=== PATIENT | male | born 1950 | race Caucasian/White ===

== ENCOUNTER → 2018-03-18 10:38 | Outpatient (CLI) | payer MEDICARE, OTHER, SELFPAY ==
--- NOTE | 2018-04-02 16:36 | P.HOLT.S_ITS ---
Cell Support Operator Report Referral & Results Date Patient Seen: 03/18/18 Requesting provider: Miles Alejandro Indication: Dizziness Duration of monitoring (days): 6 Diary information: 3 diary entries from the patient associated with sinus rhythm in PVCs 3 triggered events all associated with sinus rhythm Data: Minimum heart rate was 47 beats per minute at 07:20 on 03/19/2018 Maximum heart rate was 131 beats per minute at 12:49 on 03/19/2018 Less than 1% of identified beats were either PVCs or PACs. Impression: No clear etiology for patient's reports of dizziness identified with this study
== END ==
PROVIDERS: Family Provider Internal Medicine; PCP Internal Medicine; Visit Provider Internal Medicine
DX: R42 Dizziness and giddiness (principal)
CPT/HCPCS: 0296T; 0298T

== ENCOUNTER → 2018-11-05 07:05 | Outpatient (CLI) | payer MEDICARE, OTHER, SELFPAY ==
[2018-11-05 08:14] LABS: Alanine Aminotransferase 36 IU/L (21-72); Albumin 4.6 g/dL (3.5-5.0); Albumin Globulin Ratio 1.5 (1.0-2.8); Alkaline Phosphatase 68 U/L (38-126); Aspartate Aminotransferase 23 IU/L (17-59); BUN Creatinine Ratio 15.5 (6-22); Bilirubin Total 0.8 mg/dL (0.2-1.3); Blood Urea Nitrogen 17 mg/dL (9-20); Calcium 9.5 mg/dL (8.4-10.2); Carbon Dioxide 29 mmol/L (22-32); Chloride 101 mmol/L (98-107); Cholesterol 193 mg/dL (140-199); Estimated Glomerular Filt Rate > 60.0 mL/min (>60); Globulin 3.1 g/dL (1.7-4.1); Glucose 105 mg/dL (80-110); HDL Cholesterol 55 mg/dL (40-60); HEMOLYSIS < 15 (0-50); LDL Cholesterol Calculated 117 mg/dL (<100); Sodium 139 mmol/L (137-145); Total Protein 7.7 g/dL (6.3-8.2); Triglycerides 104 mg/dL (35-150)
== END ==
PROVIDERS: Family Provider Internal Medicine; PCP Internal Medicine; Visit Provider Internal Medicine
DX: E78.2 Mixed hyperlipidemia (principal); K21.9 Gastro-esophageal reflux disease without esophagitis; Z12.5 Encounter for screening for malignant neoplasm of prostate
CPT/HCPCS: 36415; 80053; 80061; G0103

== ENCOUNTER 2019-01-25 11:15 | Outpatient (RCR) | payer MEDICARE, OTHER, SELFPAY ==
--- NOTE | 2018-11-29 14:20 | PT.OIE ---
Current Diagnoses Pain in right shoulder (11/29/18) Cervicalgia (11/29/18) Abnormal posture (11/29/18) Weakness (11/29/18) Past Medical History (Last Updated 03/15/18 @ 15:27 by Miles Alejandro MD) Gastroesophageal reflux disease without esophagitis (Chronic 03/08/12) History of adenomatous polyp of colon (Chronic 03/08/12) Mixed hyperlipidemia (Chronic) Provider Visit Care Team Role Provider Type Miles Alejandro MD Attending Provider Physician Family Provider Primary Care Provider Specialty: Internal Medicine Address: [address] [place] [address], [facility] Email: [email or web address] Physical Therapy Initial Evaluation PT-OP-A Visit Information Start: 11/29/18 07:26 Freq: Status: Active Protocol: Document 11/29/18 11:16 [facility] (Rec: 11/29/18 12:15 [facility] [id number]) Out-Patient Physical Therapy Visit Information Visit Information Visit Type Initial Evaluation Visit Start Time 11:15 Visit Stop Time 12:00 Total Visit Minutes 45 Visit Number 09/09 Number of LOADER OPERATOR Visits 0 PT-OP-B Current Condition Start: 11/29/18 07:26 Freq: Status: Active Protocol: Document 11/29/18 11:16 [facility] (Rec: 11/29/18 12:15 [facility] [id number]) Current Condition History of Current Condition Onset Date just over a year Current Complaints neck pain History of Current Condition Pt went to the doctor and had an X-ray and it showed some arthritis and they did not think it what was causing the pain. Pt had a CT scan also that did not reveal anything. Reports it just feels like its hung up and sticky. Pt reports pain level has been about the same since it started. Pt reports every few weeks, he gets a bulge on L side. Reports a few years ago , he was doing some yoga and forced neck motion and that aggrevated his L neck. THat did recover. Pt reports history of mild R shoulder pain that he just woke up with. Reports it doesn't limit him much as he is left handed. Prior Treatments and Tests Xray & CT (done here at hospital) Treatment Goals Patient/Caregiver Goals Dec pain PT-OP-C Subjective Start: 11/29/18 07:26 Freq: Status: Active Protocol: Document 11/29/18 11:16 [facility] (Rec: 11/29/18 12:15 [facility] [id number]) Patient Questionnaires Neck Disability Index NDI Score 4 Neck Disability Index Impairment 1 to 19% Impaired (Score 1-9) OP-PT Pain Assessment Location neck Pain Location Details L neck>R Intensity 3 Scale Used Numeric (1 - 10) Description- Other worst 5-6/10 Frequency Daily Pain Duration only during activity Other Pain Aggravating Factors turn & tilt head especially R Pain Alleviating Factors None PT-OP-F Manual Assessment Start: 11/29/18 07:26 Freq: Status: Active Protocol: Document 11/29/18 11:16 [facility] (Rec: 11/29/18 12:15 [facility] [id number]) Manual Assessments Soft Tissue Assessment Soft Tissue Mobility Assessment tightness throughout L>R c spine paraspinals, scalenes, SCM, UT & LS, SO Joint Mobility Assessment Joint Mobility Assessment L 1st rib elevated PT-OP-J Posture/Palpation/Skin Start: 11/29/18 07:26 Freq: Status: Active Protocol: Document 11/29/18 11:16 [facility] (Rec: 11/29/18 12:15 [facility] [id number]) Posture Evaluation Jese Postural Classification System Jese Postural Classifications Vertical/Posterior Elbow Flexion Test 0 Comments Posture Comments Fwd shoulders & neck PT-OP-K Range of Motion Start: 11/29/18 07:26 Freq: Status: Active Protocol: Document 11/29/18 11:16 [facility] (Rec: 11/29/18 12:15 [facility] [id number]) Cervical Spine Range of Motion Cervical Spine Active Degrees Testing Position Sitting Flexion 64 Extension 47 Rotation Left 68 Rotation Right 60 Lateral Flexion Left 37 Lateral Flexion Right 40 PT-OP-L Special Tests Start: 11/29/18 07:26 Freq: Status: Active Protocol: Document 11/29/18 11:16 [facility] (Rec: 11/29/18 12:15 [facility] [id number]) Special Tests Cervical Spine Special Tests Vertebral Artery Test Results neg Alar Ligament Test Results neg Spurling's Test Test Results neg Neural Special Tests- Upper Body Radial Nerve Tension Test Results neg Upper Limb Tension Test Test Results 150 deg L & 90 deg R-R limited by shoulder Median Nerve Tension Test Results neg Ulnar Nerve Tension Test Results neg PT-OP-M Strength Start: 11/29/18 07:26 Freq: Status: Active Protocol: Document 11/29/18 11:16 [facility] (Rec: 11/29/18 12:15 [facility] [id number]) Shoulder Strength Shoulder Manual Muscle Testing Right Flexion 5 Normal Extension 5 Normal Abduction (C5) 5 Normal External Rotation 5 Normal Internal Rotation 5 Normal Left Flexion 5 Normal Extension 5 Normal Abduction (C5) 5 Normal External Rotation 5 Normal Internal Rotation 5 Normal PT-OP-Q Treatments Start: 11/29/18 07:26 Freq: Status: Active Protocol: Document 11/29/18 11:16 [facility] (Rec: 11/29/18 12:15 [facility] [id number]) Therapeutic Exercises Supine Exercises chin tuck Supine Exercise Name chin tuck Reps/Minutes 10 x3 sec hold Sitting Exercises stretches Sitting Exercise Name UT & LS Side bilateral Reps/Minutes 30 sec ea Standing Exercises wall roll up Standing Exercise Name w/90/90 ER Side bilateral Reps/Minutes 10 pec stretch Standing Exercise Name corner Side bilateral Reps/Minutes 30 sec Manual Therapy Treatment Soft Tissue Mobilization scalenes/scm Body Location scalenes & SCM Mobilization Type Rolling Intensity/Depth Moderate SOR Body Location SOR Mobilization Type Sustained Pressure Intensity/Depth Moderate PT-OP-T Assessment and Plan Start: 11/29/18 07:26 Freq: Status: Active Protocol: Document 11/29/18 11:16 [facility] (Rec: 11/29/18 12:15 [facility] [id number]) Physical Therapy Assessment Rehab Potential Rehabilitation Potential Excellent Evaluation Complexity Number of Personal Factors/Comorbidities 1-2 Number of Body Systems Impaired 4 or More Clinical Presentation at Evaluation Stable Impairments Impairments Activity Tolerance Functional Activities Functional Mobility Pain Posture ROM Soft Tissue Mobility Strength Goals ROM Short Term Goal (STG) Pt will be indep with HEP STG Duration 12/29/18 Prefitter Doors Goal (LTG) Pt will have full ROM for typical activities without pain LTG Duration 01/29/19 pain Short Term Goal (STG) Pt will report no greater than 3/10 pain STG Duration 12/29/18 Correction Goal (LTG) Pt will report no greater than 1/10 pain with all activities . LTG Duration 01/29/19 Assessment Summary Assessment Pt presents with neck pain and R shoulder pain with moderate postural deviations. He has overall strong BUE, but limited cervical ROM & dec stability of R shoulder. He would benefit from skilled PT to address posture, ROM, strength and pain. Physical Therapy Plan Frequency and Duration Frequency of Treatment 2x/Week Duration of Treatment 2 months Plan of Care Start Date 11/29/18 Plan of Care End Date 01/29/19 Therapeutic Interventions Therapeutic Interventions Home Exercise Program Joint Mobilizations Manual Therapy Patient/Caregiver Education Self-Care/Home Management Soft Tissue Mobilization Taping Therapeutic Activities Therapeutic Exercises Modalities Cold Pack/Ice Massage Electric Stimulation Hot Packs Infrared Therapy Iontophoresis Traction- Mechanical Ultrasound Next Visit Focus/Plan Next Note Type Treatment Note Next Visit Plan Review HEP & manual therapy, progress ROM
--- NOTE | 2018-11-29 14:20 | PT.OPPOC ---
Current Diagnoses Pain in right shoulder (11/29/18) Cervicalgia (11/29/18) Abnormal posture (11/29/18) Weakness (11/29/18) Provider Visit Care Team Role Provider Type Miles Alejandro MD Attending Provider Physician Family Provider Primary Care Provider Specialty: Internal Medicine Address: [address] [place] [address], [id number] Email: [email or web address] Plan Of Care PT-OP-T Assessment and Plan Start: 11/29/18 07:26 Freq: Status: Active Protocol: Document 11/29/18 11:16 [facility] (Rec: 11/29/18 12:15 [facility] [id number]) Physical Therapy Assessment Rehab Potential Rehabilitation Potential Excellent Evaluation Complexity Number of Personal Factors/Comorbidities 1-2 Number of Body Systems Impaired 4 or More Clinical Presentation at Evaluation Stable Impairments Impairments Activity Tolerance Functional Activities Functional Mobility Pain Posture ROM Soft Tissue Mobility Strength Goals ROM Short Term Goal (STG) Pt will be indep with HEP STG Duration 12/29/18 Snf Goal (LTG) Pt will have full ROM for typical activities without pain LTG Duration 01/29/19 pain Short Term Goal (STG) Pt will report no greater than 3/10 pain STG Duration 12/29/18 Cold Press Operator Goal (LTG) Pt will report no greater than 1/10 pain with all activities . LTG Duration 01/29/19 Assessment Summary Assessment Pt presents with neck pain and R shoulder pain with moderate postural deviations. He has overall strong BUE, but limited cervical ROM & dec stability of R shoulder. He would benefit from skilled PT to address posture, ROM, strength and pain. Physical Therapy Plan Frequency and Duration Frequency of Treatment 2x/Week Duration of Treatment 2 months Plan of Care Start Date 11/29/18 Plan of Care End Date 01/29/19 Therapeutic Interventions Therapeutic Interventions Home Exercise Program Joint Mobilizations Manual Therapy Patient/Caregiver Education Self-Care/Home Management Soft Tissue Mobilization Taping Therapeutic Activities Therapeutic Exercises Modalities Cold Pack/Ice Massage Electric Stimulation Hot Packs Infrared Therapy Iontophoresis Traction- Mechanical Ultrasound Next Visit Focus/Plan Next Note Type Treatment Note Next Visit Plan Review HEP & manual therapy, progress ROM Plan of Care Dates Plan of Care Start Date 11/29/18 Plan of Care End Date 01/29/19 Please Sign and Return: I have reviewed this Plan of Care and certify that the skilled therapy services above are required to meet the patient?s needs. Physician Signature Date Printed Name and Credentials Clinical Instructor Signature Printed Name and Credentials
--- NOTE | 2018-12-03 11:25 | PT.OTN ---
Current Diagnoses Cervicalgia (12/03/18) Physical Therapy Treatment Note PT-OP-A Visit Information Start: 11/29/18 07:26 Freq: Status: Active Protocol: Document 12/03/18 10:31 [facility] (Rec: 12/03/18 11:25 [facility] [id number]) Out-Patient Physical Therapy Visit Information Visit Information Visit Type Treatment Note Visit Start Time 10:30 Visit Stop Time 11:20 Total Visit Minutes 50 Visit Number 2/10 Number of SITE LEAD Visits 0 PT-OP-B Current Condition Start: 11/29/18 07:26 Freq: Status: Active Protocol: Document 11/29/18 11:16 [facility] (Rec: 11/29/18 12:15 [facility] [id number]) Current Condition History of Current Condition Onset Date just over a year Current Complaints neck pain History of Current Condition Pt went to the doctor and had an X-ray and it showed some arthritis and they did not think it what was causing the pain. Pt had a CT scan also that did not reveal anything. Reports it just feels like its hung up and sticky. Pt reports pain level has been about the same since it started. Pt reports every few weeks, he gets a bulge on L side. Reports a few years ago , he was doing some yoga and forced neck motion and that aggrevated his L neck. THat did recover. Pt reports history of mild R shoulder pain that he just woke up with. Reports it doesn't limit him much as he is left handed. Prior Treatments and Tests Xray & CT (done here at hospital) Treatment Goals Patient/Caregiver Goals Dec pain PT-OP-C Subjective Start: 11/29/18 07:26 Freq: Status: Active Protocol: Document 12/03/18 10:31 [facility] (Rec: 12/03/18 11:25 [facility] [id number]) OP-PT Subjective Patient Comments Patient Comments Compliant w/HEP PT-OP-F Manual Assessment Start: 11/29/18 07:26 Freq: Status: Active Protocol: Document 11/29/18 11:16 [facility] (Rec: 11/29/18 12:15 [facility] [id number]) Manual Assessments Soft Tissue Assessment Soft Tissue Mobility Assessment tightness throughout L>R c spine paraspinals, scalenes, SCM, UT & LS, SO Joint Mobility Assessment Joint Mobility Assessment L 1st rib elevated PT-OP-J Posture/Palpation/Skin Start: 11/29/18 07:26 Freq: Status: Active Protocol: Document 11/29/18 11:16 [facility] (Rec: 11/29/18 12:15 [facility] [id number]) Posture Evaluation [facility] Postural Classification System [facility] Postural Classifications Vertical/Posterior Elbow Flexion Test 0 Comments Posture Comments Fwd shoulders & neck PT-OP-K Range of Motion Start: 11/29/18 07:26 Freq: Status: Active Protocol: Document 11/29/18 11:16 [facility] (Rec: 11/29/18 12:15 [facility] [id number]) Cervical Spine Range of Motion Cervical Spine Active Degrees Testing Position Sitting Flexion 64 Extension 47 Rotation Left 68 Rotation Right 60 Lateral Flexion Left 37 Lateral Flexion Right 40 PT-OP-L Special Tests Start: 11/29/18 07:26 Freq: Status: Active Protocol: Document 11/29/18 11:16 [facility] (Rec: 11/29/18 12:15 [facility] [id number]) Special Tests Cervical Spine Special Tests Vertebral Artery Test Results neg Alar Ligament Test Results neg Spurling's Test Test Results neg Neural Special Tests- Upper Body Radial Nerve Tension Test Results neg Upper Limb Tension Test Test Results 150 deg L & 90 deg R-R limited by shoulder Median Nerve Tension Test Results neg Ulnar Nerve Tension Test Results neg PT-OP-M Strength Start: 11/29/18 07:26 Freq: Status: Active Protocol: Document 11/29/18 11:16 [facility] (Rec: 11/29/18 12:15 [facility] [id number]) Shoulder Strength Shoulder Manual Muscle Testing Right Flexion 5 Normal Extension 5 Normal Abduction (C5) 5 Normal External Rotation 5 Normal Internal Rotation 5 Normal Left Flexion 5 Normal Extension 5 Normal Abduction (C5) 5 Normal External Rotation 5 Normal Internal Rotation 5 Normal PT-OP-Q Treatments Start: 11/29/18 07:26 Freq: Status: Active Protocol: Document 12/03/18 10:31 [facility] (Rec: 12/03/18 11:25 [facility] [id number]) Therapeutic Exercises Supine Exercises chin tuck Supine Exercise Name chin tuck Reps/Minutes 10 x3 sec hold Sidelying Exercises roll & reach Sidelying Exercise Name rot Side bilateral Reps/Minutes 10 Sitting Exercises stretches Sitting Exercise Name UT & LS & scalene Side bilateral Reps/Minutes 30 sec ea Comments scalene stopped d/t pain Standing Exercises wall roll up Standing Exercise Name w/90/90 ER Side bilateral Reps/Minutes 10 pec stretch Standing Exercise Name corner Side bilateral Reps/Minutes 30 sec Manual Therapy Treatment Soft Tissue Mobilization UT/LS Body Location UT/LS Mobilization Type Rolling Intensity/Depth Moderate scalenes/scm Body Location scalenes & SCM Mobilization Type Rolling Intensity/Depth Moderate SOR Body Location SOR Mobilization Type Sustained Pressure Intensity/Depth Moderate PT-OP-R Modalities Start: 11/29/18 07:26 Freq: Status: Active Protocol: Document 12/03/18 10:31 [facility] (Rec: 12/03/18 11:25 [facility] [id number]) Hot Pack/Cold Pack Treatment Cold Pack Location cervical Patient Position Supine Treatment Duration (minutes) 10 PT-OP-T Assessment and Plan Start: 11/29/18 07:26 Freq: Status: Active Protocol: Document 12/03/18 10:31 [facility] (Rec: 12/03/18 11:25 [facility] [id number]) Physical Therapy Assessment Goals ROM Short Term Goal (STG) Pt will be indep with HEP STG Duration 12/29/18 Skilled Nursing Goal (LTG) Pt will have full ROM for typical activities without pain LTG Duration 01/29/19 pain Short Term Goal (STG) Pt will report no greater than 3/10 pain STG Duration 12/29/18 Abattoir Supervisor Goal (LTG) Pt will report no greater than 1/10 pain with all activities . LTG Duration 01/29/19 Assessment Summary Assessment Pt had improved rotation w/ manual soft tissue massage. He was able to do exercises with min cueing. Most step up assistance required was for wall posture exercise. Physical Therapy Plan Frequency and Duration Frequency of Treatment 2x/Week Duration of Treatment 2 months Plan of Care Start Date 11/29/18 Plan of Care End Date 01/29/19 Next Visit Focus/Plan Next Note Type Treatment Note Next Visit Plan progress ROM & cervical stability
--- NOTE | 2018-12-10 11:31 | PT.OTN ---
Current Diagnoses Cervicalgia (12/10/18) Physical Therapy Treatment Note PT-OP-A Visit Information Start: 11/29/18 07:26 Freq: Status: Active Protocol: Document 12/10/18 10:41 [facility] (Rec: 12/10/18 11:31 [facility] [id number]) Out-Patient Physical Therapy Visit Information Visit Information Visit Type Treatment Note Visit Start Time 10:35 Visit Stop Time 11:25 Total Visit Minutes 50 Visit Number 3/10 Number of CUSTOMER SERVICE SECURITY OFFICER Visits 0 PT-OP-B Current Condition Start: 11/29/18 07:26 Freq: Status: Active Protocol: Document 11/29/18 11:16 [facility] (Rec: 11/29/18 12:15 [facility] [id number]) Current Condition History of Current Condition Onset Date just over a year Current Complaints neck pain History of Current Condition Pt went to the doctor and had an X-ray and it showed some arthritis and they did not think it what was causing the pain. Pt had a CT scan also that did not reveal anything. Reports it just feels like its hung up and sticky. Pt reports pain level has been about the same since it started. Pt reports every few weeks, he gets a bulge on L side. Reports a few years ago , he was doing some yoga and forced neck motion and that aggrevated his L neck. THat did recover. Pt reports history of mild R shoulder pain that he just woke up with. Reports it doesn't limit him much as he is left handed. Prior Treatments and Tests Xray & CT (done here at hospital) Treatment Goals Patient/Caregiver Goals Dec pain PT-OP-C Subjective Start: 11/29/18 07:26 Freq: Status: Active Protocol: Document 12/10/18 10:41 [facility] (Rec: 12/10/18 11:31 [facility] [id number]) OP-PT Subjective Patient Comments Patient Comments Pt reports doing most exercises. Todd pretty good for 3 days after last session. PT-OP-F Manual Assessment Start: 11/29/18 07:26 Freq: Status: Active Protocol: Document 11/29/18 11:16 [facility] (Rec: 11/29/18 12:15 [facility] [id number]) Manual Assessments Soft Tissue Assessment Soft Tissue Mobility Assessment tightness throughout L>R c spine paraspinals, scalenes, SCM, UT & LS, SO Joint Mobility Assessment Joint Mobility Assessment L 1st rib elevated PT-OP-J Posture/Palpation/Skin Start: 11/29/18 07:26 Freq: Status: Active Protocol: Document 11/29/18 11:16 [facility] (Rec: 11/29/18 12:15 [facility] [id number]) Posture Evaluation [facility] Postural Classification System Jese Postural Classifications Vertical/Posterior Elbow Flexion Test 0 Comments Posture Comments Fwd shoulders & neck PT-OP-K Range of Motion Start: 11/29/18 07:26 Freq: Status: Active Protocol: Document 11/29/18 11:16 [facility] (Rec: 11/29/18 12:15 [facility] [id number]) Cervical Spine Range of Motion Cervical Spine Active Degrees Testing Position Sitting Flexion 64 Extension 47 Rotation Left 68 Rotation Right 60 Lateral Flexion Left 37 Lateral Flexion Right 40 PT-OP-L Special Tests Start: 11/29/18 07:26 Freq: Status: Active Protocol: Document 11/29/18 11:16 [facility] (Rec: 11/29/18 12:15 [facility] [id number]) Special Tests Cervical Spine Special Tests Vertebral Artery Test Results neg Alar Ligament Test Results neg Spurling's Test Test Results neg Neural Special Tests- Upper Body Radial Nerve Tension Test Results neg Upper Limb Tension Test Test Results 150 deg L & 90 deg R-R limited by shoulder Median Nerve Tension Test Results neg Ulnar Nerve Tension Test Results neg PT-OP-M Strength Start: 11/29/18 07:26 Freq: Status: Active Protocol: Document 11/29/18 11:16 [facility] (Rec: 11/29/18 12:15 [facility] [id number]) Shoulder Strength Shoulder Manual Muscle Testing Right Flexion 5 Normal Extension 5 Normal Abduction (C5) 5 Normal External Rotation 5 Normal Internal Rotation 5 Normal Left Flexion 5 Normal Extension 5 Normal Abduction (C5) 5 Normal External Rotation 5 Normal Internal Rotation 5 Normal PT-OP-Q Treatments Start: 11/29/18 07:26 Freq: Status: Active Protocol: Document 12/10/18 10:41 [facility] (Rec: 12/10/18 11:31 [facility] [id number]) Therapeutic Exercises Supine Exercises chin tuck Supine Exercise Name chin tuck Reps/Minutes 10 x3 sec hold Sidelying Exercises roll & reach Sidelying Exercise Name rot Side bilateral Reps/Minutes 10 Sitting Exercises stretches Sitting Exercise Name UT & LS Side bilateral Reps/Minutes 30 sec ea Standing Exercises wall roll up Standing Exercise Name w/90/90 ER Side bilateral Reps/Minutes 10 Manual Therapy Treatment Soft Tissue Mobilization paraspinals Body Location C spine Mobilization Type Rolling Intensity/Depth Moderate Body Position Supine UT/LS Body Location UT/LS Mobilization Type Rolling Intensity/Depth Moderate scalenes/scm Body Location scalenes & SCM Mobilization Type Rolling Intensity/Depth Moderate SOR Body Location SOR Mobilization Type Sustained Pressure Intensity/Depth Moderate Joint Mobilizations SC Joint SC L Direction caudal FM AC Joint AC L Direction acromian FM PT-OP-R Modalities Start: 11/29/18 07:26 Freq: Status: Active Protocol: Document 12/10/18 10:41 [facility] (Rec: 12/10/18 11:31 [facility] [id number]) Hot Pack/Cold Pack Treatment Cold Pack Location cervical Patient Position Supine Treatment Duration (minutes) 10 PT-OP-T Assessment and Plan Start: 11/29/18 07:26 Freq: Status: Active Protocol: Document 12/10/18 10:41 [facility] (Rec: 12/10/18 11:31 [facility] [id number]) Physical Therapy Assessment Goals ROM Short Term Goal (STG) Pt will be indep with HEP STG Duration 12/29/18 Range Conservationist Goal (LTG) Pt will have full ROM for typical activities without pain LTG Duration 01/29/19 pain Short Term Goal (STG) Pt will report no greater than 3/10 pain STG Duration 12/29/18 Range Conservationist Goal (LTG) Pt will report no greater than 1/10 pain with all activities . LTG Duration 01/29/19 Assessment Summary Assessment Min cuieng for exercises and required review for roll & reach. He had improved soft tissue mobilization after STM and joint mobs. Physical Therapy Plan Frequency and Duration Frequency of Treatment 2x/Week Duration of Treatment 2 months Plan of Care Start Date 11/29/18 Plan of Care End Date 01/29/19 Next Visit Focus/Plan Next Note Type Treatment Note Next Visit Plan cervical stability & thoracic PA
--- NOTE | 2018-12-13 14:34 | PT.OTN ---
Current Diagnoses Cervicalgia (12/13/18) Physical Therapy Treatment Note PT-OP-A Visit Information Start: 11/29/18 07:26 Freq: Status: Active Protocol: Document 12/13/18 13:47 [facility] (Rec: 12/13/18 14:34 [facility] [id number]) Out-Patient Physical Therapy Visit Information Visit Information Visit Type Treatment Note Visit Start Time 13:45 Visit Stop Time 14:25 Total Visit Minutes 40 Visit Number 4/10 Number of TECHNICAL ADVISOR Visits 0 PT-OP-B Current Condition Start: 11/29/18 07:26 Freq: Status: Active Protocol: Document 11/29/18 11:16 [facility] (Rec: 11/29/18 12:15 [facility] [id number]) Current Condition History of Current Condition Onset Date just over a year Current Complaints neck pain History of Current Condition Pt went to the doctor and had an X-ray and it showed some arthritis and they did not think it what was causing the pain. Pt had a CT scan also that did not reveal anything. Reports it just feels like its hung up and sticky. Pt reports pain level has been about the same since it started. Pt reports every few weeks, he gets a bulge on L side. Reports a few years ago , he was doing some yoga and forced neck motion and that aggrevated his L neck. THat did recover. Pt reports history of mild R shoulder pain that he just woke up with. Reports it doesn't limit him much as he is left handed. Prior Treatments and Tests Xray & CT (done here at hospital) Treatment Goals Patient/Caregiver Goals Dec pain PT-OP-C Subjective Start: 11/29/18 07:26 Freq: Status: Active Protocol: Document 12/13/18 13:47 [facility] (Rec: 12/13/18 14:34 [facility] [id number]) OP-PT Subjective Patient Comments Patient Comments Pt reports neck cont to be stiff but he doesn't feel the lump feeling. Patient Reported Progress Improving PT-OP-F Manual Assessment Start: 11/29/18 07:26 Freq: Status: Active Protocol: Document 11/29/18 11:16 [facility] (Rec: 11/29/18 12:15 [facility] [id number]) Manual Assessments Soft Tissue Assessment Soft Tissue Mobility Assessment tightness throughout L>R c spine paraspinals, scalenes, SCM, UT & LS, SO Joint Mobility Assessment Joint Mobility Assessment L 1st rib elevated PT-OP-J Posture/Palpation/Skin Start: 11/29/18 07:26 Freq: Status: Active Protocol: Document 11/29/18 11:16 [facility] (Rec: 11/29/18 12:15 [facility] [id number]) Posture Evaluation [facility] Postural Classification System Jese Postural Classifications Vertical/Posterior Elbow Flexion Test 0 Comments Posture Comments Fwd shoulders & neck PT-OP-K Range of Motion Start: 11/29/18 07:26 Freq: Status: Active Protocol: Document 11/29/18 11:16 [facility] (Rec: 11/29/18 12:15 [facility] [id number]) Cervical Spine Range of Motion Cervical Spine Active Degrees Testing Position Sitting Flexion 64 Extension 47 Rotation Left 68 Rotation Right 60 Lateral Flexion Left 37 Lateral Flexion Right 40 PT-OP-L Special Tests Start: 11/29/18 07:26 Freq: Status: Active Protocol: Document 11/29/18 11:16 [facility] (Rec: 11/29/18 12:15 [facility] [id number]) Special Tests Cervical Spine Special Tests Vertebral Artery Test Results neg Alar Ligament Test Results neg Spurling's Test Test Results neg Neural Special Tests- Upper Body Radial Nerve Tension Test Results neg Upper Limb Tension Test Test Results 150 deg L & 90 deg R-R limited by shoulder Median Nerve Tension Test Results neg Ulnar Nerve Tension Test Results neg PT-OP-M Strength Start: 11/29/18 07:26 Freq: Status: Active Protocol: Document 11/29/18 11:16 [facility] (Rec: 11/29/18 12:15 [facility] [id number]) Shoulder Strength Shoulder Manual Muscle Testing Right Flexion 5 Normal Extension 5 Normal Abduction (C5) 5 Normal External Rotation 5 Normal Internal Rotation 5 Normal Left Flexion 5 Normal Extension 5 Normal Abduction (C5) 5 Normal External Rotation 5 Normal Internal Rotation 5 Normal PT-OP-Q Treatments Start: 11/29/18 07:26 Freq: Status: Active Protocol: Document 12/13/18 13:47 [facility] (Rec: 12/13/18 14:34 [facility] [id number]) Therapeutic Exercises Supine Exercises foam roll Supine Exercise Name foam roll: flex, Habd, abd, 90 /90 ER Side bilateral Reps/Minutes 10 ea Prone Exercises prone Y Prone Exercise Name scaption Side bilateral Equipment Used 1# Reps/Minutes 2x10 over tball Prone Exercise Name Habd Side bilateral Reps/Minutes 1x10 0#; 2x10 2# Therapeutic Activity Therapeutic Activity sleep Name sleeping position-partial prone Manual Therapy Treatment Soft Tissue Mobilization paraspinals Body Location C spine Mobilization Type Rolling Intensity/Depth Moderate Body Position Supine UT/LS Body Location UT/LS Mobilization Type Rolling Intensity/Depth Moderate scalenes/scm Body Location scalenes & SCM Mobilization Type Rolling Intensity/Depth Moderate SOR Body Location SOR Mobilization Type Sustained Pressure Intensity/Depth Moderate Joint Mobilizations C3 Joint c3 Direction transverse glide R Grade II PT-OP-R Modalities Start: 11/29/18 07:26 Freq: Status: Active Protocol: Document 12/10/18 10:41 [facility] (Rec: 12/10/18 11:31 [facility] [id number]) Hot Pack/Cold Pack Treatment Cold Pack Location cervical Patient Position Supine Treatment Duration (minutes) 10 PT-OP-T Assessment and Plan Start: 11/29/18 07:26 Freq: Status: Active Protocol: Document 12/13/18 13:47 [facility] (Rec: 12/13/18 14:34 [facility] [id number]) Physical Therapy Assessment Goals ROM Short Term Goal (STG) Pt will be indep with HEP STG Duration 12/29/18 Snf Goal (LTG) Pt will have full ROM for typical activities without pain LTG Duration 01/29/19 pain Short Term Goal (STG) Pt will report no greater than 3/10 pain STG Duration 12/29/18 Snf Goal (LTG) Pt will report no greater than 1/10 pain with all activities . LTG Duration 01/29/19 Assessment Summary Assessment Pt required ceuing for neutral back and neck with foam roll and tball exercises today. Improving soft tissue mobility but cont to be restricted Physical Therapy Plan Frequency and Duration Frequency of Treatment 2x/Week Duration of Treatment 2 months Plan of Care Start Date 11/29/18 Plan of Care End Date 01/29/19 Next Visit Focus/Plan Next Note Type Treatment Note Next Visit Plan cont to work on cervical and thoracic stability.
--- NOTE | 2018-12-17 11:14 | PT.OTN ---
Current Diagnoses Cervicalgia (12/17/18) Physical Therapy Treatment Note PT-OP-A Visit Information Start: 11/29/18 07:26 Freq: Status: Active Protocol: Document 12/17/18 10:20 [facility] (Rec: 12/17/18 11:13 [facility] [id number]) Out-Patient Physical Therapy Visit Information Visit Information Visit Type Treatment Note Visit Start Time 10:25 Visit Stop Time 11:15 Total Visit Minutes 50 Visit Number 5/10 Number of PUBLIC SERVICE ADMINISTRATOR Visits 0 PT-OP-B Current Condition Start: 11/29/18 07:26 Freq: Status: Active Protocol: Document 11/29/18 11:16 [facility] (Rec: 11/29/18 12:15 [facility] [id number]) Current Condition History of Current Condition Onset Date just over a year Current Complaints neck pain History of Current Condition Pt went to the doctor and had an X-ray and it showed some arthritis and they did not think it what was causing the pain. Pt had a CT scan also that did not reveal anything. Reports it just feels like its hung up and sticky. Pt reports pain level has been about the same since it started. Pt reports every few weeks, he gets a bulge on L side. Reports a few years ago , he was doing some yoga and forced neck motion and that aggrevated his L neck. THat did recover. Pt reports history of mild R shoulder pain that he just woke up with. Reports it doesn't limit him much as he is left handed. Prior Treatments and Tests Xray & CT (done here at hospital) Treatment Goals Patient/Caregiver Goals Dec pain PT-OP-C Subjective Start: 11/29/18 07:26 Freq: Status: Active Protocol: Document 12/17/18 10:20 [facility] (Rec: 12/17/18 11:13 [facility] [id number]) OP-PT Subjective Patient Comments Patient Comments Pt reports neck pain cont to be getting better. Patient Reported Progress Improving PT-OP-F Manual Assessment Start: 11/29/18 07:26 Freq: Status: Active Protocol: Document 11/29/18 11:16 [facility] (Rec: 11/29/18 12:15 [facility] [id number]) Manual Assessments Soft Tissue Assessment Soft Tissue Mobility Assessment tightness throughout L>R c spine paraspinals, scalenes, SCM, UT & LS, SO Joint Mobility Assessment Joint Mobility Assessment L 1st rib elevated PT-OP-J Posture/Palpation/Skin Start: 11/29/18 07:26 Freq: Status: Active Protocol: Document 11/29/18 11:16 [facility] (Rec: 11/29/18 12:15 [facility] [id number]) Posture Evaluation [facility] Postural Classification System Jese Postural Classifications Vertical/Posterior Elbow Flexion Test 0 Comments Posture Comments Fwd shoulders & neck PT-OP-K Range of Motion Start: 11/29/18 07:26 Freq: Status: Active Protocol: Document 11/29/18 11:16 [facility] (Rec: 11/29/18 12:15 [facility] [id number]) Cervical Spine Range of Motion Cervical Spine Active Degrees Testing Position Sitting Flexion 64 Extension 47 Rotation Left 68 Rotation Right 60 Lateral Flexion Left 37 Lateral Flexion Right 40 PT-OP-L Special Tests Start: 11/29/18 07:26 Freq: Status: Active Protocol: Document 11/29/18 11:16 [facility] (Rec: 11/29/18 12:15 [facility] [id number]) Special Tests Cervical Spine Special Tests Vertebral Artery Test Results neg Alar Ligament Test Results neg Spurling's Test Test Results neg Neural Special Tests- Upper Body Radial Nerve Tension Test Results neg Upper Limb Tension Test Test Results 150 deg L & 90 deg R-R limited by shoulder Median Nerve Tension Test Results neg Ulnar Nerve Tension Test Results neg PT-OP-M Strength Start: 11/29/18 07:26 Freq: Status: Active Protocol: Document 11/29/18 11:16 [facility] (Rec: 11/29/18 12:15 [facility] [id number]) Shoulder Strength Shoulder Manual Muscle Testing Right Flexion 5 Normal Extension 5 Normal Abduction (C5) 5 Normal External Rotation 5 Normal Internal Rotation 5 Normal Left Flexion 5 Normal Extension 5 Normal Abduction (C5) 5 Normal External Rotation 5 Normal Internal Rotation 5 Normal PT-OP-Q Treatments Start: 11/29/18 07:26 Freq: Status: Active Protocol: Document 12/17/18 10:20 [facility] (Rec: 12/17/18 11:13 [facility] [id number]) Therapeutic Exercises Supine Exercises foam roll Supine Exercise Name foam roll: flex, Habd, abd, 90 /90 ER Side bilateral Reps/Minutes 10 ea chin tuck Supine Exercise Name axial elongation w/ hand support taken away Reps/Minutes 5 sec hold x8 Prone Exercises prone Y Prone Exercise Name scaption Side bilateral Equipment Used 1# Reps/Minutes 2x10 over tball Prone Exercise Name Habd Side bilateral Equipment Used 2# Reps/Minutes 2x10 Manual Therapy Treatment Soft Tissue Mobilization paraspinals Body Location C spine Mobilization Type Rolling Intensity/Depth Moderate Body Position Supine UT/LS Body Location UT/LS Mobilization Type Rolling Intensity/Depth Moderate scalenes/scm Body Location scalenes & SCM Mobilization Type Rolling Intensity/Depth Moderate SOR Body Location SOR Mobilization Type Sustained Pressure Intensity/Depth Moderate PT-OP-R Modalities Start: 11/29/18 07:26 Freq: Status: Active Protocol: Document 12/17/18 10:20 [facility] (Rec: 12/17/18 11:13 [facility] [id number]) Hot Pack/Cold Pack Treatment Cold Pack Location cervical Patient Position Supine Treatment Duration (minutes) 10 PT-OP-T Assessment and Plan Start: 11/29/18 07:26 Freq: Status: Active Protocol: Document 12/17/18 10:20 [facility] (Rec: 12/17/18 11:13 [facility] [id number]) Physical Therapy Assessment Goals ROM Short Term Goal (STG) Pt will be indep with HEP STG Duration 12/29/18 Half-Way Goal (LTG) Pt will have full ROM for typical activities without pain LTG Duration 01/29/19 pain Short Term Goal (STG) Pt will report no greater than 3/10 pain STG Duration 12/29/18 Half-Way Goal (LTG) Pt will report no greater than 1/10 pain with all activities . LTG Duration 01/29/19 Assessment Summary Assessment Pt is imprvoing with cervical mobility. Has good PROM in supine and was able to stretch R UT in supine but is painful in standing so encouraged to do supine. Good form with tball exercises with min cuieng. Physical Therapy Plan Frequency and Duration Frequency of Treatment 2x/Week Duration of Treatment 2 months Plan of Care Start Date 11/29/18 Plan of Care End Date 01/29/19 Next Visit Focus/Plan Next Note Type Treatment Note Next Visit Plan cont to work on cervical and thoracic stability.
--- NOTE | 2018-12-20 12:04 | PT.OTN ---
Current Diagnoses Cervicalgia (12/20/18) Physical Therapy Treatment Note PT-OP-A Visit Information Start: 11/29/18 07:26 Freq: Status: Active Protocol: Document 12/20/18 11:22 [facility] (Rec: 12/20/18 12:04 [facility] [id number]) Out-Patient Physical Therapy Visit Information Visit Information Visit Type Treatment Note Visit Start Time 11:20 Visit Stop Time 12:00 Total Visit Minutes 40 Visit Number 6/10 Number of FLAT LOCKER Visits 0 PT-OP-B Current Condition Start: 11/29/18 07:26 Freq: Status: Active Protocol: Document 11/29/18 11:16 [facility] (Rec: 11/29/18 12:15 [facility] [id number]) Current Condition History of Current Condition Onset Date just over a year Current Complaints neck pain History of Current Condition Pt went to the doctor and had an X-ray and it showed some arthritis and they did not think it what was causing the pain. Pt had a CT scan also that did not reveal anything. Reports it just feels like its hung up and sticky. Pt reports pain level has been about the same since it started. Pt reports every few weeks, he gets a bulge on L side. Reports a few years ago , he was doing some yoga and forced neck motion and that aggrevated his L neck. THat did recover. Pt reports history of mild R shoulder pain that he just woke up with. Reports it doesn't limit him much as he is left handed. Prior Treatments and Tests Xray & CT (done here at hospital) Treatment Goals Patient/Caregiver Goals Dec pain PT-OP-C Subjective Start: 11/29/18 07:26 Freq: Status: Active Protocol: Document 12/17/18 10:20 [facility] (Rec: 12/17/18 11:13 [facility] [id number]) OP-PT Subjective Patient Comments Patient Comments Pt reports neck pain cont to be getting better. Patient Reported Progress Improving PT-OP-F Manual Assessment Start: 11/29/18 07:26 Freq: Status: Active Protocol: Document 11/29/18 11:16 [facility] (Rec: 11/29/18 12:15 [facility] [id number]) Manual Assessments Soft Tissue Assessment Soft Tissue Mobility Assessment tightness throughout L>R c spine paraspinals, scalenes, SCM, UT & LS, SO Joint Mobility Assessment Joint Mobility Assessment L 1st rib elevated PT-OP-J Posture/Palpation/Skin Start: 11/29/18 07:26 Freq: Status: Active Protocol: Document 11/29/18 11:16 [facility] (Rec: 11/29/18 12:15 [facility] [id number]) Posture Evaluation [facility] Postural Classification System Jese Postural Classifications Vertical/Posterior Elbow Flexion Test 0 Comments Posture Comments Fwd shoulders & neck PT-OP-K Range of Motion Start: 11/29/18 07:26 Freq: Status: Active Protocol: Document 11/29/18 11:16 [facility] (Rec: 11/29/18 12:15 [facility] [id number]) Cervical Spine Range of Motion Cervical Spine Active Degrees Testing Position Sitting Flexion 64 Extension 47 Rotation Left 68 Rotation Right 60 Lateral Flexion Left 37 Lateral Flexion Right 40 PT-OP-L Special Tests Start: 11/29/18 07:26 Freq: Status: Active Protocol: Document 11/29/18 11:16 [facility] (Rec: 11/29/18 12:15 [facility] [id number]) Special Tests Cervical Spine Special Tests Vertebral Artery Test Results neg Alar Ligament Test Results neg Spurling's Test Test Results neg Neural Special Tests- Upper Body Radial Nerve Tension Test Results neg Upper Limb Tension Test Test Results 150 deg L & 90 deg R-R limited by shoulder Median Nerve Tension Test Results neg Ulnar Nerve Tension Test Results neg PT-OP-M Strength Start: 11/29/18 07:26 Freq: Status: Active Protocol: Document 11/29/18 11:16 [facility] (Rec: 11/29/18 12:15 [facility] [id number]) Shoulder Strength Shoulder Manual Muscle Testing Right Flexion 5 Normal Extension 5 Normal Abduction (C5) 5 Normal External Rotation 5 Normal Internal Rotation 5 Normal Left Flexion 5 Normal Extension 5 Normal Abduction (C5) 5 Normal External Rotation 5 Normal Internal Rotation 5 Normal PT-OP-Q Treatments Start: 11/29/18 07:26 Freq: Status: Active Protocol: Document 12/20/18 11:22 [facility] (Rec: 12/20/18 12:04 [facility] [id number]) Therapeutic Exercises Supine Exercises chin tuck Supine Exercise Name axial elongation w/ hand support taken away Reps/Minutes 5 sec hold x8 Standing Exercises Habd Standing Exercise Name Habd Side bilateral Equipment Used L2 Reps/Minutes 20 ER Standing Exercise Name B Side bilateral Reps/Minutes 20 ext Standing Exercise Name shoulder Side bilateral Equipment Used L3 Reps/Minutes 20 Manual Therapy Treatment Soft Tissue Mobilization paraspinals Body Location C spine Mobilization Type Rolling Intensity/Depth Moderate Body Position Supine UT/LS Body Location UT/LS Mobilization Type Rolling Intensity/Depth Moderate scalenes/scm Body Location scalenes & SCM Mobilization Type Rolling Intensity/Depth Moderate SOR Body Location SOR Mobilization Type Sustained Pressure Intensity/Depth Moderate Joint Mobilizations cervical Joint C4 & 5 Direction PA FM L PT-OP-R Modalities Start: 11/29/18 07:26 Freq: Status: Active Protocol: Document 12/17/18 10:20 [facility] (Rec: 12/17/18 11:13 [facility] [id number]) Hot Pack/Cold Pack Treatment Cold Pack Location cervical Patient Position Supine Treatment Duration (minutes) 10 PT-OP-T Assessment and Plan Start: 11/29/18 07:26 Freq: Status: Active Protocol: Document 12/20/18 11:22 [facility] (Rec: 12/20/18 12:04 [facility] [id number]) Physical Therapy Assessment Goals ROM Short Term Goal (STG) Pt will be indep with HEP STG Duration 12/29/18 Penitentiary Goal (LTG) Pt will have full ROM for typical activities without pain LTG Duration 01/29/19 pain Short Term Goal (STG) Pt will report no greater than 3/10 pain STG Duration 12/29/18 Hand Cutter Apprentice Goal (LTG) Pt will report no greater than 1/10 pain with all activities . LTG Duration 01/29/19 Assessment Summary Assessment Pt had no pain with close to full ROM in seated AROM and supine PROM today after manual treatement. He cotnt ot improve with scapular stability Physical Therapy Plan Frequency and Duration Frequency of Treatment 2x/Week Duration of Treatment 2 months Plan of Care Start Date 11/29/18 Plan of Care End Date 01/29/19 Next Visit Focus/Plan Next Note Type Treatment Note Next Visit Plan cont to work on cervical and thoracic stability & mobility.
--- NOTE | 2018-12-27 13:00 | PT.OTN ---
Current Diagnoses Cervicalgia (12/27/18) Physical Therapy Treatment Note PT-OP-A Visit Information Start: 11/29/18 07:26 Freq: Status: Active Protocol: Document 12/27/18 11:20 [facility] (Rec: 12/27/18 13:00 [facility] [id number]) Out-Patient Physical Therapy Visit Information Visit Information Visit Type Treatment Note Visit Start Time 11:20 Visit Stop Time 12:10 Total Visit Minutes 50 Visit Number 7/10 Number of UTILITY MECHANIC SUPERVISOR Visits 0 PT-OP-B Current Condition Start: 11/29/18 07:26 Freq: Status: Active Protocol: Document 11/29/18 11:16 [facility] (Rec: 11/29/18 12:15 [facility] [id number]) Current Condition History of Current Condition Onset Date just over a year Current Complaints neck pain History of Current Condition Pt went to the doctor and had an X-ray and it showed some arthritis and they did not think it what was causing the pain. Pt had a CT scan also that did not reveal anything. Reports it just feels like its hung up and sticky. Pt reports pain level has been about the same since it started. Pt reports every few weeks, he gets a bulge on L side. Reports a few years ago , he was doing some yoga and forced neck motion and that aggrevated his L neck. THat did recover. Pt reports history of mild R shoulder pain that he just woke up with. Reports it doesn't limit him much as he is left handed. Prior Treatments and Tests Xray & CT (done here at hospital) Treatment Goals Patient/Caregiver Goals Dec pain PT-OP-C Subjective Start: 11/29/18 07:26 Freq: Status: Active Protocol: Document 12/27/18 11:20 [facility] (Rec: 12/27/18 13:00 [facility] [id number]) OP-PT Subjective Patient Comments Patient Comments Pt reports neck is more of a fatigue feeling through the day. Movement improving PT-OP-F Manual Assessment Start: 11/29/18 07:26 Freq: Status: Active Protocol: Document 11/29/18 11:16 [facility] (Rec: 11/29/18 12:15 [facility] [id number]) Manual Assessments Soft Tissue Assessment Soft Tissue Mobility Assessment tightness throughout L>R c spine paraspinals, scalenes, SCM, UT & LS, SO Joint Mobility Assessment Joint Mobility Assessment L 1st rib elevated PT-OP-J Posture/Palpation/Skin Start: 11/29/18 07:26 Freq: Status: Active Protocol: Document 11/29/18 11:16 [facility] (Rec: 11/29/18 12:15 [facility] [id number]) Posture Evaluation [facility] Postural Classification System Jese Postural Classifications Vertical/Posterior Elbow Flexion Test 0 Comments Posture Comments Fwd shoulders & neck PT-OP-K Range of Motion Start: 11/29/18 07:26 Freq: Status: Active Protocol: Document 11/29/18 11:16 [facility] (Rec: 11/29/18 12:15 [facility] [id number]) Cervical Spine Range of Motion Cervical Spine Active Degrees Testing Position Sitting Flexion 64 Extension 47 Rotation Left 68 Rotation Right 60 Lateral Flexion Left 37 Lateral Flexion Right 40 PT-OP-L Special Tests Start: 11/29/18 07:26 Freq: Status: Active Protocol: Document 11/29/18 11:16 [facility] (Rec: 11/29/18 12:15 [facility] [id number]) Special Tests Cervical Spine Special Tests Vertebral Artery Test Results neg Alar Ligament Test Results neg Spurling's Test Test Results neg Neural Special Tests- Upper Body Radial Nerve Tension Test Results neg Upper Limb Tension Test Test Results 150 deg L & 90 deg R-R limited by shoulder Median Nerve Tension Test Results neg Ulnar Nerve Tension Test Results neg PT-OP-M Strength Start: 11/29/18 07:26 Freq: Status: Active Protocol: Document 11/29/18 11:16 [facility] (Rec: 11/29/18 12:15 [facility] [id number]) Shoulder Strength Shoulder Manual Muscle Testing Right Flexion 5 Normal Extension 5 Normal Abduction (C5) 5 Normal External Rotation 5 Normal Internal Rotation 5 Normal Left Flexion 5 Normal Extension 5 Normal Abduction (C5) 5 Normal External Rotation 5 Normal Internal Rotation 5 Normal PT-OP-Q Treatments Start: 11/29/18 07:26 Freq: Status: Active Protocol: Document 12/27/18 11:20 [facility] (Rec: 12/27/18 13:00 [facility] [id number]) Therapeutic Exercises Supine Exercises chin tuck Supine Exercise Name axial elongation w/ hand support taken away Reps/Minutes 5 sec hold x5 Standing Exercises Habd Standing Exercise Name Habd Side bilateral Equipment Used L3 Reps/Minutes 20 ER Standing Exercise Name B Side bilateral Equipment Used L3 Reps/Minutes 20 ext Standing Exercise Name shoulder Side bilateral Equipment Used L4 Reps/Minutes 20 Other Exercises quadruped Other Exercise Name for neck & scapular stability Reps/Minutes 5 sec hold x6 Manual Therapy Treatment Soft Tissue Mobilization paraspinals Body Location C spine Mobilization Type Rolling Intensity/Depth Moderate Body Position Supine UT/LS Body Location UT/LS Mobilization Type Rolling Intensity/Depth Moderate scalenes/scm Body Location scalenes & SCM Mobilization Type Rolling Intensity/Depth Moderate SOR Body Location SOR Mobilization Type Sustained Pressure Intensity/Depth Moderate Joint Mobilizations cervical Joint C4 & 5 Direction AP FM L PT-OP-R Modalities Start: 11/29/18 07:26 Freq: Status: Active Protocol: Document 12/27/18 11:20 [facility] (Rec: 12/27/18 13:00 [facility] [id number]) Hot Pack/Cold Pack Treatment Cold Pack Location cervical Patient Position Supine Treatment Duration (minutes) 10 PT-OP-T Assessment and Plan Start: 11/29/18 07:26 Freq: Status: Active Protocol: Document 12/27/18 11:20 [facility] (Rec: 12/27/18 13:00 [facility] [id number]) Physical Therapy Assessment Goals ROM Short Term Goal (STG) Pt will be indep with HEP STG Duration 12/29/18 Intermediate Goal (LTG) Pt will have full ROM for typical activities without pain LTG Duration 01/29/19 pain Short Term Goal (STG) Pt will report no greater than 3/10 pain STG Duration 12/29/18 Pole Lift Operator Goal (LTG) Pt will report no greater than 1/10 pain with all activities . LTG Duration 01/29/19 Assessment Summary Assessment Pt had good ROM today. Cueing required for neutral cervical and scapular stability with exercises. He cont to advance with his program. Physical Therapy Plan Frequency and Duration Frequency of Treatment 2x/Week Duration of Treatment 2 months Plan of Care Start Date 11/29/18 Plan of Care End Date 01/29/19 Next Visit Focus/Plan Next Note Type Treatment Note Next Visit Plan progress wB stability
--- NOTE | 2019-01-11 15:42 | PT.OTN ---
Current Diagnoses Cervicalgia (01/11/19) Physical Therapy Treatment Note PT-OP-A Visit Information Start: 11/29/18 07:26 Freq: Status: Active Protocol: Document 01/11/19 11:15 [facility] (Rec: 01/11/19 15:41 [facility] [id number]) Out-Patient Physical Therapy Visit Information Visit Information Visit Type Treatment Note Visit Start Time 11:15 Visit Stop Time 12:05 Total Visit Minutes 50 Visit Number 8/10 Number of GAS METER CHECKER Visits 1 PT-OP-B Current Condition Start: 11/29/18 07:26 Freq: Status: Active Protocol: Document 11/29/18 11:16 [facility] (Rec: 11/29/18 12:15 [facility] [id number]) Current Condition History of Current Condition Onset Date just over a year Current Complaints neck pain History of Current Condition Pt went to the doctor and had an X-ray and it showed some arthritis and they did not think it what was causing the pain. Pt had a CT scan also that did not reveal anything. Reports it just feels like its hung up and sticky. Pt reports pain level has been about the same since it started. Pt reports every few weeks, he gets a bulge on L side. Reports a few years ago , he was doing some yoga and forced neck motion and that aggrevated his L neck. THat did recover. Pt reports history of mild R shoulder pain that he just woke up with. Reports it doesn't limit him much as he is left handed. Prior Treatments and Tests Xray & CT (done here at hospital) Treatment Goals Patient/Caregiver Goals Dec pain PT-OP-C Subjective Start: 11/29/18 07:26 Freq: Status: Active Protocol: Document 01/11/19 11:15 [facility] (Rec: 01/11/19 15:41 [facility] [id number]) OP-PT Subjective Patient Comments Patient Comments Pt states he is getting better everyday. PT-OP-F Manual Assessment Start: 11/29/18 07:26 Freq: Status: Active Protocol: Document 11/29/18 11:16 [facility] (Rec: 11/29/18 12:15 [facility] [id number]) Manual Assessments Soft Tissue Assessment Soft Tissue Mobility Assessment tightness throughout L>R c spine paraspinals, scalenes, SCM, UT & LS, SO Joint Mobility Assessment Joint Mobility Assessment L 1st rib elevated PT-OP-J Posture/Palpation/Skin Start: 11/29/18 07:26 Freq: Status: Active Protocol: Document 11/29/18 11:16 [facility] (Rec: 11/29/18 12:15 [facility] [id number]) Posture Evaluation [facility] Postural Classification System [facility] Postural Classifications Vertical/Posterior Elbow Flexion Test 0 Comments Posture Comments Fwd shoulders & neck PT-OP-K Range of Motion Start: 11/29/18 07:26 Freq: Status: Active Protocol: Document 11/29/18 11:16 [facility] (Rec: 11/29/18 12:15 [facility] [id number]) Cervical Spine Range of Motion Cervical Spine Active Degrees Testing Position Sitting Flexion 64 Extension 47 Rotation Left 68 Rotation Right 60 Lateral Flexion Left 37 Lateral Flexion Right 40 PT-OP-L Special Tests Start: 11/29/18 07:26 Freq: Status: Active Protocol: Document 11/29/18 11:16 [facility] (Rec: 11/29/18 12:15 [facility] [id number]) Special Tests Cervical Spine Special Tests Vertebral Artery Test Results neg Alar Ligament Test Results neg Spurling's Test Test Results neg Neural Special Tests- Upper Body Radial Nerve Tension Test Results neg Upper Limb Tension Test Test Results 150 deg L & 90 deg R-R limited by shoulder Median Nerve Tension Test Results neg Ulnar Nerve Tension Test Results neg PT-OP-M Strength Start: 11/29/18 07:26 Freq: Status: Active Protocol: Document 11/29/18 11:16 [facility] (Rec: 11/29/18 12:15 [facility] [id number]) Shoulder Strength Shoulder Manual Muscle Testing Right Flexion 5 Normal Extension 5 Normal Abduction (C5) 5 Normal External Rotation 5 Normal Internal Rotation 5 Normal Left Flexion 5 Normal Extension 5 Normal Abduction (C5) 5 Normal External Rotation 5 Normal Internal Rotation 5 Normal PT-OP-Q Treatments Start: 11/29/18 07:26 Freq: Status: Active Protocol: Document 01/11/19 11:15 [facility] (Rec: 01/11/19 15:41 [facility] [id number]) Therapeutic Exercises Supine Exercises chin tuck Supine Exercise Name axial elongation w/ hand support taken away Reps/Minutes 5 sec hold x5 Standing Exercises Habd Standing Exercise Name Habd Side bilateral Equipment Used L3 Reps/Minutes 20 ER Standing Exercise Name B Side bilateral Equipment Used L3 Reps/Minutes 20 ext Standing Exercise Name shoulder Side bilateral Equipment Used L4 Reps/Minutes 20 Manual Therapy Treatment Soft Tissue Mobilization paraspinals Body Location C spine Mobilization Type Rolling Intensity/Depth Moderate Body Position Supine UT/LS Body Location UT/LS Mobilization Type Rolling Intensity/Depth Moderate scalenes/scm Body Location scalenes & SCM Mobilization Type Rolling Intensity/Depth Moderate Joint Mobilizations cervical Joint C4 & 5 Direction AP FM L PT-OP-R Modalities Start: 11/29/18 07:26 Freq: Status: Active Protocol: Document 01/11/19 11:15 [facility] (Rec: 01/11/19 15:41 [facility] [id number]) Hot Pack/Cold Pack Treatment Cold Pack Location cervical Patient Position Supine Treatment Duration (minutes) 10 PT-OP-T Assessment and Plan Start: 11/29/18 07:26 Freq: Status: Active Protocol: Document 01/11/19 11:15 [facility] (Rec: 01/11/19 15:41 [facility] [id number]) Physical Therapy Assessment Assessment Summary Assessment Pt need cues for posture and scap control with exercise. He improving with ROM and decrease tenderness with palpation. Physical Therapy Plan Frequency and Duration Frequency of Treatment 2x/Week Duration of Treatment 2 months Plan of Care Start Date 11/29/18 Plan of Care End Date 01/29/19 Next Visit Focus/Plan Next Note Type Treatment Note Next Visit Plan cervical and thoracic stability
--- NOTE | 2019-01-18 19:08 | PT.OTN ---
Current Diagnoses Cervicalgia (01/18/19) Physical Therapy Treatment Note PT-OP-A Visit Information Start: 11/29/18 07:26 Freq: Status: Active Protocol: Document 01/18/19 19:03 [facility] (Rec: 01/18/19 19:08 [facility] [id number]) Out-Patient Physical Therapy Visit Information Visit Information Visit Type Treatment Note Visit Start Time 11:15 Visit Stop Time 12:05 Total Visit Minutes 50 Visit Number 9/10 Number of MANAGER FILE Visits 0 PT-OP-B Current Condition Start: 11/29/18 07:26 Freq: Status: Active Protocol: Document 11/29/18 11:16 [facility] (Rec: 11/29/18 12:15 [facility] [id number]) Current Condition History of Current Condition Onset Date just over a year Current Complaints neck pain History of Current Condition Pt went to the doctor and had an X-ray and it showed some arthritis and they did not think it what was causing the pain. Pt had a CT scan also that did not reveal anything. Reports it just feels like its hung up and sticky. Pt reports pain level has been about the same since it started. Pt reports every few weeks, he gets a bulge on L side. Reports a few years ago , he was doing some yoga and forced neck motion and that aggrevated his L neck. THat did recover. Pt reports history of mild R shoulder pain that he just woke up with. Reports it doesn't limit him much as he is left handed. Prior Treatments and Tests Xray & CT (done here at hospital) Treatment Goals Patient/Caregiver Goals Dec pain PT-OP-C Subjective Start: 11/29/18 07:26 Freq: Status: Active Protocol: Document 01/18/19 19:03 [facility] (Rec: 01/18/19 19:08 [facility] [id number]) OP-PT Subjective Patient Comments Patient Comments Pt reports he can now turn his head left PT-OP-F Manual Assessment Start: 11/29/18 07:26 Freq: Status: Active Protocol: Document 11/29/18 11:16 [facility] (Rec: 11/29/18 12:15 [facility] [id number]) Manual Assessments Soft Tissue Assessment Soft Tissue Mobility Assessment tightness throughout L>R c spine paraspinals, scalenes, SCM, UT & LS, SO Joint Mobility Assessment Joint Mobility Assessment L 1st rib elevated PT-OP-J Posture/Palpation/Skin Start: 11/29/18 07:26 Freq: Status: Active Protocol: Document 11/29/18 11:16 [facility] (Rec: 11/29/18 12:15 [facility] [id number]) Posture Evaluation [facility] Postural Classification System [facility] Postural Classifications Vertical/Posterior Elbow Flexion Test 0 Comments Posture Comments Fwd shoulders & neck PT-OP-K Range of Motion Start: 11/29/18 07:26 Freq: Status: Active Protocol: Document 11/29/18 11:16 [facility] (Rec: 11/29/18 12:15 [facility] [id number]) Cervical Spine Range of Motion Cervical Spine Active Degrees Testing Position Sitting Flexion 64 Extension 47 Rotation Left 68 Rotation Right 60 Lateral Flexion Left 37 Lateral Flexion Right 40 PT-OP-L Special Tests Start: 11/29/18 07:26 Freq: Status: Active Protocol: Document 11/29/18 11:16 [facility] (Rec: 11/29/18 12:15 [facility] [id number]) Special Tests Cervical Spine Special Tests Vertebral Artery Test Results neg Alar Ligament Test Results neg Spurling's Test Test Results neg Neural Special Tests- Upper Body Radial Nerve Tension Test Results neg Upper Limb Tension Test Test Results 150 deg L & 90 deg R-R limited by shoulder Median Nerve Tension Test Results neg Ulnar Nerve Tension Test Results neg PT-OP-M Strength Start: 11/29/18 07:26 Freq: Status: Active Protocol: Document 11/29/18 11:16 [facility] (Rec: 11/29/18 12:15 [facility] [id number]) Shoulder Strength Shoulder Manual Muscle Testing Right Flexion 5 Normal Extension 5 Normal Abduction (C5) 5 Normal External Rotation 5 Normal Internal Rotation 5 Normal Left Flexion 5 Normal Extension 5 Normal Abduction (C5) 5 Normal External Rotation 5 Normal Internal Rotation 5 Normal PT-OP-Q Treatments Start: 11/29/18 07:26 Freq: Status: Active Protocol: Document 01/18/19 19:03 [facility] (Rec: 01/18/19 19:08 [facility] [id number]) Therapeutic Exercises Standing Exercises ER Standing Exercise Name B Side bilateral Equipment Used L3 Reps/Minutes 20 Manual Therapy Treatment Soft Tissue Mobilization paraspinals Body Location C spine Mobilization Type Rolling Intensity/Depth Moderate Body Position Supine UT/LS Body Location UT/LS Mobilization Type Rolling Intensity/Depth Moderate scalenes/scm Body Location scalenes & SCM Mobilization Type Rolling Intensity/Depth Moderate Joint Mobilizations SC Joint SC Direction caudal FM PT-OP-R Modalities Start: 11/29/18 07:26 Freq: Status: Active Protocol: Document 01/18/19 19:03 [facility] (Rec: 01/18/19 19:08 [facility] [id number]) Hot Pack/Cold Pack Treatment Cold Pack Location cervical Patient Position Supine Treatment Duration (minutes) 10 PT-OP-T Assessment and Plan Start: 11/29/18 07:26 Freq: Status: Active Protocol: Document 01/18/19 19:03 [facility] (Rec: 01/18/19 19:08 [facility] [id number]) Physical Therapy Assessment Goals ROM Short Term Goal (STG) Pt will be indep with HEP STG Duration 12/29/18 [facility] Goal (LTG) Pt will have full ROM for typical activities without pain LTG Duration 01/29/19 pain Short Term Goal (STG) Pt will report no greater than 3/10 pain STG Duration 12/29/18 [facility] Goal (LTG) Pt will report no greater than 1/10 pain with all activities . LTG Duration 01/29/19 Assessment Summary Assessment Pt is improving with scapular positioning and mecahnics. He has improvement in pain and stiffness in neck after treatment. Physical Therapy Plan Frequency and Duration Frequency of Treatment 2x/Week Duration of Treatment 2 months Plan of Care Start Date 11/29/18 Plan of Care End Date 01/29/19 Next Visit Focus/Plan Next Note Type Progress Note Next Visit Plan Re look at HEP
--- NOTE | 2019-01-25 12:05 | PT.OTN ---
Current Diagnoses Cervicalgia (01/25/19) Physical Therapy Treatment Note PT-OP-A Visit Information Start: 11/29/18 07:26 Freq: Status: Active Protocol: Document 01/25/19 11:18 [facility] (Rec: 01/25/19 12:05 [facility] [id number]) Out-Patient Physical Therapy Visit Information Visit Information Visit Type Discharge Summary Visit Start Time 11:20 Visit Stop Time 12:10 Total Visit Minutes 50 Visit Number 06/09 Number of PORTABLE TRACKMAN Visits 0 PT-OP-B Current Condition Start: 11/29/18 07:26 Freq: Status: Active Protocol: Document 11/29/18 11:16 [facility] (Rec: 11/29/18 12:15 [facility] [id number]) Current Condition History of Current Condition Onset Date just over a year Current Complaints neck pain History of Current Condition Pt went to the doctor and had an X-ray and it showed some arthritis and they did not think it what was causing the pain. Pt had a CT scan also that did not reveal anything. Reports it just feels like its hung up and sticky. Pt reports pain level has been about the same since it started. Pt reports every few weeks, he gets a bulge on L side. Reports a few years ago , he was doing some yoga and forced neck motion and that aggrevated his L neck. THat did recover. Pt reports history of mild R shoulder pain that he just woke up with. Reports it doesn't limit him much as he is left handed. Prior Treatments and Tests Xray & CT (done here at hospital) Treatment Goals Patient/Caregiver Goals Dec pain PT-OP-C Subjective Start: 11/29/18 07:26 Freq: Status: Active Protocol: Document 01/25/19 11:18 [facility] (Rec: 01/25/19 12:05 [facility] [id number]) OP-PT Subjective Patient Comments Patient Comments Pt reports he feels like his neck is more mobile and is doing well. Patient Questionnaires Neck Disability Index NDI Score 3 Neck Disability Index Impairment 1 to 19% Impaired (Score 1-9) PT-OP-F Manual Assessment Start: 11/29/18 07:26 Freq: Status: Active Protocol: Document 11/29/18 11:16 [facility] (Rec: 11/29/18 12:15 [facility] [id number]) Manual Assessments Soft Tissue Assessment Soft Tissue Mobility Assessment tightness throughout L>R c spine paraspinals, scalenes, SCM, UT & LS, SO Joint Mobility Assessment Joint Mobility Assessment L 1st rib elevated PT-OP-J Posture/Palpation/Skin Start: 11/29/18 07:26 Freq: Status: Active Protocol: Document 11/29/18 11:16 [facility] (Rec: 11/29/18 12:15 [facility] [id number]) Posture Evaluation [facility] Postural Classification System [facility] Postural Classifications Vertical/Posterior Elbow Flexion Test 0 Comments Posture Comments Fwd shoulders & neck PT-OP-K Range of Motion Start: 11/29/18 07:26 Freq: Status: Active Protocol: Document 01/25/19 11:18 [facility] (Rec: 01/25/19 12:05 [facility] [id number]) Cervical Spine Range of Motion Cervical Spine Active Degrees Flexion 60 Extension 45 Rotation Left 64 Rotation Right 65 Lateral Flexion Left 45 Lateral Flexion Right 45 PT-OP-L Special Tests Start: 11/29/18 07:26 Freq: Status: Active Protocol: Document 11/29/18 11:16 [facility] (Rec: 11/29/18 12:15 [facility] [id number]) Special Tests Cervical Spine Special Tests Vertebral Artery Test Results neg Alar Ligament Test Results neg Spurling's Test Test Results neg Neural Special Tests- Upper Body Radial Nerve Tension Test Results neg Upper Limb Tension Test Test Results 150 deg L & 90 deg R-R limited by shoulder Median Nerve Tension Test Results neg Ulnar Nerve Tension Test Results neg PT-OP-M Strength Start: 11/29/18 07:26 Freq: Status: Active Protocol: Document 11/29/18 11:16 [facility] (Rec: 11/29/18 12:15 [facility] [id number]) Shoulder Strength Shoulder Manual Muscle Testing Right Flexion 5 Normal Extension 5 Normal Abduction (C5) 5 Normal External Rotation 5 Normal Internal Rotation 5 Normal Left Flexion 5 Normal Extension 5 Normal Abduction (C5) 5 Normal External Rotation 5 Normal Internal Rotation 5 Normal PT-OP-Q Treatments Start: 11/29/18 07:26 Freq: Status: Active Protocol: Document 01/25/19 11:18 [facility] (Rec: 01/25/19 12:05 [facility] [id number]) Therapeutic Exercises Supine Exercises chin tuck Supine Exercise Name axial elongation w/ hand support taken away Reps/Minutes 5 sec hold x5 Standing Exercises Habd Standing Exercise Name Habd Side bilateral Equipment Used L3 Reps/Minutes 20 ER Standing Exercise Name B Side bilateral Equipment Used L3 Reps/Minutes 10 ext Standing Exercise Name shoulder Side bilateral Equipment Used L3 Reps/Minutes 20 Other Exercises quadruped Other Exercise Name Y&T Side bilateral Reps/Minutes 10 ea Manual Therapy Treatment Soft Tissue Mobilization paraspinals Body Location C spine Mobilization Type Rolling Intensity/Depth Moderate Body Position Supine scalenes/scm Body Location scalenes & SCM Mobilization Type Rolling Intensity/Depth Moderate Self-Care/Home Management Treatment Education Patient Education Body Mechanics Home Exercise Program Posture PT-OP-R Modalities Start: 11/29/18 07:26 Freq: Status: Active Protocol: Document 01/25/19 11:18 [facility] (Rec: 01/25/19 12:05 [facility] [id number]) Hot Pack/Cold Pack Treatment Cold Pack Location cervical & lumbar Patient Position Supine Treatment Duration (minutes) 10 PT-OP-T Assessment and Plan Start: 11/29/18 07:26 Freq: Status: Active Protocol: Document 01/25/19 11:18 [facility] (Rec: 01/25/19 12:05 [facility] [id number]) Physical Therapy Assessment Goals ROM Short Term Goal (STG) Pt will be indep with HEP STG Duration achieved [facility] Goal (LTG) Pt will have full ROM for typical activities without pain LTG Duration achieve WFL pain Short Term Goal (STG) Pt will report no greater than 3/10 pain STG Duration achieved S[employer] Soil Blocks Pulper Goal (LTG) Pt will report no greater than 1/10 pain with all activities . LTG Duration achieved Assessment Summary Assessment Pt reports no longer having pain with activities. Cont occasional stiffness but no longer is limited by neck. Reviewed HEP today and discussed importance of maintaining flexibility & strength with d/c from PT. Reviewed lifting mechanics as pt asked Physical Therapy Plan Discharge Physical Therapy Discharge Reasons Goals Met
--- NOTE | 2019-01-25 12:05 | PT.OPDS ---
Current Diagnoses Cervicalgia (01/25/19) Provider Visit Care Team Role Provider Type Miles Alejandro MD Attending Provider Physician Family Provider Primary Care Provider Specialty: Internal Medicine Address: [address] [place] [address], [id number] Email: [email or web address] Visit Number Visit Number 06/09 Discharge Summary PT-OP-B Current Condition Start: 11/29/18 07:26 Freq: Status: Active Protocol: Document 11/29/18 11:16 [facility] (Rec: 11/29/18 12:15 [facility] [id number]) Current Condition History of Current Condition Onset Date just over a year Current Complaints neck pain History of Current Condition Pt went to the doctor and had an X-ray and it showed some arthritis and they did not think it what was causing the pain. Pt had a CT scan also that did not reveal anything. Reports it just feels like its hung up and sticky. Pt reports pain level has been about the same since it started. Pt reports every few weeks, he gets a bulge on L side. Reports a few years ago , he was doing some yoga and forced neck motion and that aggrevated his L neck. THat did recover. Pt reports history of mild R shoulder pain that he just woke up with. Reports it doesn't limit him much as he is left handed. Prior Treatments and Tests Xray & CT (done here at hospital) Treatment Goals Patient/Caregiver Goals Dec pain PT-OP-C Subjective Start: 11/29/18 07:26 Freq: Status: Active Protocol: Document 01/25/19 11:18 [facility] (Rec: 01/25/19 12:05 [facility] [id number]) OP-PT Subjective Patient Comments Patient Comments Pt reports he feels like his neck is more mobile and is doing well. Patient Questionnaires Neck Disability Index NDI Score 3 Neck Disability Index Impairment 1 to 19% Impaired (Score 1-9) PT-OP-F Manual Assessment Start: 11/29/18 07:26 Freq: Status: Active Protocol: Document 11/29/18 11:16 [facility] (Rec: 11/29/18 12:15 [facility] [id number]) Manual Assessments Soft Tissue Assessment Soft Tissue Mobility Assessment tightness throughout L>R c spine paraspinals, scalenes, SCM, UT & LS, SO Joint Mobility Assessment Joint Mobility Assessment L 1st rib elevated PT-OP-J Posture/Palpation/Skin Start: 11/29/18 07:26 Freq: Status: Active Protocol: Document 11/29/18 11:16 [facility] (Rec: 11/29/18 12:15 [facility] [id number]) Posture Evaluation [facility] Postural Classification System [facility] Postural Classifications Vertical/Posterior Elbow Flexion Test 0 Comments Posture Comments Fwd shoulders & neck PT-OP-K Range of Motion Start: 11/29/18 07:26 Freq: Status: Active Protocol: Document 01/25/19 11:18 [facility] (Rec: 01/25/19 12:05 [facility] [id number]) Cervical Spine Range of Motion Cervical Spine Active Degrees Flexion 60 Extension 45 Rotation Left 64 Rotation Right 65 Lateral Flexion Left 45 Lateral Flexion Right 45 PT-OP-L Special Tests Start: 11/29/18 07:26 Freq: Status: Active Protocol: Document 11/29/18 11:16 [facility] (Rec: 11/29/18 12:15 [facility] [id number]) Special Tests Cervical Spine Special Tests Vertebral Artery Test Results neg Alar Ligament Test Results neg Spurling's Test Test Results neg Neural Special Tests- Upper Body Radial Nerve Tension Test Results neg Upper Limb Tension Test Test Results 150 deg L & 90 deg R-R limited by shoulder Median Nerve Tension Test Results neg Ulnar Nerve Tension Test Results neg PT-OP-M Strength Start: 11/29/18 07:26 Freq: Status: Active Protocol: Document 11/29/18 11:16 [facility] (Rec: 11/29/18 12:15 [facility] [id number]) Shoulder Strength Shoulder Manual Muscle Testing Right Flexion 5 Normal Extension 5 Normal Abduction (C5) 5 Normal External Rotation 5 Normal Internal Rotation 5 Normal Left Flexion 5 Normal Extension 5 Normal Abduction (C5) 5 Normal External Rotation 5 Normal Internal Rotation 5 Normal PT-OP-T Assessment and Plan Start: 11/29/18 07:26 Freq: Status: Active Protocol: Document 01/25/19 11:18 [facility] (Rec: 01/25/19 12:05 [facility] [id number]) Physical Therapy Assessment Goals ROM Short Term Goal (STG) Pt will be indep with HEP STG Duration achieved Local Bulk Driver Goal (LTG) Pt will have full ROM for typical activities without pain LTG Duration achieve WFL pain Short Term Goal (STG) Pt will report no greater than 3/10 pain STG Duration achieved Group Home Goal (LTG) Pt will report no greater than 1/10 pain with all activities . LTG Duration achieved Assessment Summary Assessment Pt reports no longer having pain with activities. Cont occasional stiffness but no longer is limited by neck. Reviewed HEP today and discussed importance of maintaining flexibility & strength with d/c from PT. Reviewed lifting mechanics as pt asked Physical Therapy Plan Discharge Physical Therapy Discharge Reasons Goals Met
== END 2019-01-27 11:03 | disposition home or self-care (01) ==
LOC: PHYS 11:15
PROVIDERS: Family Provider Internal Medicine; PCP Internal Medicine; Visit Provider Internal Medicine
DX: M54.2 Cervicalgia (principal)
CPT/HCPCS: 97110; 97140; 97161; 97535

== ENCOUNTER → 2019-06-02 11:17 | Outpatient (CLI) | payer MEDICARE, OTHER, SELFPAY ==
--- NOTE | 2019-06-02 11:19 | DI.US.S_ITS ---
PROCEDURE: US EXTREMITY NONVASC UPPER LT INDICATIONS: FOREIGN BODY IN LEFT MIDDLE FINGER TECHNIQUE: Real-time scanning was performed of the left middle finger/third digit, with image documentation. COMPARISON: None. FINDINGS: Linear echogenic focus measuring approximately 4-5 mm in length and 1 mm in width identified within the soft tissues along the dorsal aspect of the left third distal phalanx /middle finger (per lining machine operator). IMPRESSION: 4-5 mm linear echogenic focus within the soft tissues adjacent the left third distal phalanx/middle finger, which could represent a foreign body. Dictated by: Jacobo CROCKETT Interpreted: Madi Amaro MD on 06/02/2019 at 13:03 Approved by: Madi Amaro M.D. on 06/02/2019 at 15:05
== END ==
PROVIDERS: PCP Internal Medicine; Visit Provider Nurse Practitioner Family
DX: M79.5 Residual foreign body in soft tissue (principal)
CPT/HCPCS: 76882

== ENCOUNTER → 2019-11-10 10:44 | Outpatient (CLI) | payer MEDICARE, OTHER, SELFPAY ==
--- NOTE | 2019-11-10 10:48 | DI.RAD.S_ITS ---
PROCEDURE: XR LUMBAR SPINE MIN 4V INDICATIONS: low back pain TECHNIQUE: 5 views of the lumbar spine were acquired. COMPARISON: None. FINDINGS: Bones: 5 [id number] vertebrae are present. There is normal bony alignment. No vertebral body compression fractures. No suspicious bony lesions. There is [id number] degenerative disc disease at L2-L3, L3-L4, L4-L5 and L5-S1. Moderate facet arthropathy at L4-L5. Soft tissues: Overlying bowel gas pattern is normal. No suspicious soft tissue calcifications. Oblique images: No pars defects. IMPRESSION: Degenerative disc and facet disease as described. Dictated by: Azra Chapman M.D. on 11/10/2019 at 14:08 Approved by: Azra Chapman M.D. on 11/10/2019 at 14:09
== END ==
PROVIDERS: PCP Internal Medicine; Referring Provider Physical Medicine & Rehabilitation; Visit Provider Physical Medicine & Rehabilitation
DX: M54.5 Low back pain (principal); M51.16 Intervertebral disc disorders with radiculopathy, lumbar region; M51.17 Intervertebral disc disorders with radiculopathy, lumbosacral region; M47.26 Other spondylosis with radiculopathy, lumbar region
CPT/HCPCS: 72110

== ENCOUNTER → 2020-02-29 14:20 | Outpatient (CLI) | payer MEDICARE, OTHER, SELFPAY ==
--- NOTE | 2020-02-29 14:21 | DI.MRI.S_ITS ---
PROCEDURE: MR LUMBAR SPINE WO CON INDICATIONS: Low back pain TECHNIQUE: Noncontrast sagittal T1 spin echo and T2 fast echo, sagittal STIR, axial T1 and T2 fast spin echo through the lumbar spine. In cases with scoliosis, additional coronal T2 fast spin echo may be performed. COMPARISON: None. FINDINGS: Image quality: Excellent. Alignment and Curvature: There is normal bony alignment. Bone Marrow: Reactive endplate change is noted adjacent to the L4-L5 and L5-S1 discs. No acute vertebral body compression fractures. Spinal Cord: Conus medullaris terminates at the L1-L2 level. Visualized cord demonstrates normal signal and size. Paraspinous Soft Tissues: No paravertebral masses. L1-L2: Normal appearance. L2-L3: Loss of disc signal. Mild, diffuse disc bulge. Mild narrowing of the central canal. Mild bilateral neural foraminal narrowing. No neural compression. L3-L4: Loss of the signal. Mild, diffuse disc bulge. Mild bilateral facet hypertrophy. Mild narrowing of the central canal. Mild to moderate bilateral neural foraminal narrowing. No neural compression. Fissure noted in the anterior annulus. L4-L5: Loss of disc signal. Mild to moderate diffuse disc bulge. Moderate facet hypertrophy. Moderate narrowing of the central canal. Mild right and [id number] left neural foraminal narrowing. No neural compression. L5-S1: Loss of disc signal and slight loss of disc height. Mild, diffuse disc bulge. Mild bilateral facet hypertrophy. No central stenosis. Mild right and moderate left neural foraminal narrowing. No neural compression. IMPRESSION: 1. Multilevel degenerative disease. 2. Multilevel facet arthropathy. 3. Moderate L4-L5 central canal narrowing. Mild L3-L4 central canal narrowing. 4. Mild right and moderate left L5-S1 neural foraminal narrowing. Mild to moderate bilateral L3-L4 neural foraminal narrowing. Mild right and mild to moderate left L4-L5 neural foraminal narrowing. Mild bilateral L2-L3 neural foraminal narrowing. 5. No neural compression 6. L3-L4 disc annulus fissure. Dictated by: Betty Lorenzana MD, PhD on 02/29/2020 at 15:45 Approved by: Betty Lorenzana MD, PhD on 02/29/2020 at 15:49
== END ==
PROVIDERS: PCP Internal Medicine; Referring Provider Physical Medicine & Rehabilitation; Visit Provider Physical Medicine & Rehabilitation
DX: M54.5 Low back pain (principal); M47.816 Spondylosis without myelopathy or radiculopathy, lumbar region; M47.817 Spondylosis without myelopathy or radiculopathy, lumbosacral region; M51.36 Other intervertebral disc degeneration, lumbar region; M51.37 Other intervertebral disc degeneration, lumbosacral region; M48.061 Spinal stenosis, lumbar region without neurogenic claudication; M48.07 Spinal stenosis, lumbosacral region
CPT/HCPCS: 72148

== ENCOUNTER → 2020-06-16 11:17 | Outpatient (CLI) | payer MEDICARE, OTHER, SELFPAY ==
[2020-06-18 05:57] LABS: COVID19 Sendout Not Detected (Not Detect)
== END ==
PROVIDERS: PCP Internal Medicine; Visit Provider Physician Assistant
DX: Z01.812 Encounter for preprocedural laboratory examination (principal)
CPT/HCPCS: 87635

== ENCOUNTER 2020-06-19 08:51 | Outpatient (CLI) | payer MEDICARE, OTHER, SELFPAY ==
[2020-06-19] VITALS (10 sets, daily range): BP systolic 109–152; BP diastolic 66–79; PULSE 58–71; RESP 15–19; TEMP 36.5; O2SAT 98–100
--- NOTE | 2020-06-19 08:53 | DI.RAD.S_ITS ---
PROCEDURE: PAIN L/S FACET INJ/BLK 1ST ZABRINA COMPARISON: None. INDICATIONS: SPONDYLOSIS FINDINGS: Right-sided needle tip localization is documented at the L3-4 and L4-5 facet joints, and thereafter at the left side same facet joints. IMPRESSION: Successful bilateral L3-4 and L4-5 facet joint injections, 4 total procedures. Dictated by: Aly Kim M.D. on 06/19/2020 at 10:50 Approved by: Aly Kim M.D. on 06/19/2020 at 10:51
[2020-06-19] MEDS: MIDAZOLAM 5 MG/5 ML VIAL IV (09:57)
[2020-06-19] MEDS: fentaNYL 100 MCG/2 ML INJ 50 MCG IV (10:02)
[2020-06-19] MEDS: BETAMETHASONE 30 MG/5 ML MDV 12 MG INJ (10:03)
[2020-06-19] MEDS: LIDOCAINE 1% 20 ML 10 ML INJ (10:04)
[2020-06-19] MEDS: BUPIVACAINE 0.5% (PF) VIAL 2 ML INJ (10:04)
[2020-06-19] MEDS: IOPAMIDOL 15 ML VIAL 3 ML INJ (10:05)
--- NOTE | 2020-06-19 10:16 | P.PCN_ITS ---
Date/Time/Diagnoses Date of procedure: 06/19/20 Time of procedure: 10:16 Pre-procedure diagnosis: 1. FACET ARTHROPATHY 2. AXIAL LBP 3. MULTILEVEL DDD Post-procedure diagnosis: same Procedure Notes Procedure: 1. FLUORSCOPICALLY GUIDED CONTRAST CONTROLLED FACET JOINT INJECTIONS BILATERAL L3/4, L4/5 Indications: Konrad is referred by Dr. Alejandro for treatment of Axial LBP Physician: Timo Gilbert Total Fluoroscopy time (seconds): 15 Total sedation minutes: 14 Complications: none Procedure in detail & Post-procedure care: FINDINGS Multilevel Facet Arthropathy with Clinically significant axial LBP DESCRIPTION OF PROCEDURE Fluoroscopically guided, contrast-controlled bilateral L3/4, L4/5 facet joint injections. Following review of allergy and review of potential side effects and complications, including, but not necessarily limited to, infection, allergic reaction, local tissue breakdown, stroke, temporary or permanent nerve injury, paralysis, and possible , the patient indicated that the patient understood and agreed to proceed. An informed consent document was signed by the patient, witnessed by a nurse, and placed in the patient's chart. Additionally, other treatment options including medications, modalities, and physical therapy were reviewed with the patient. After review of previous anaesthesic history and IV conscious sedation the patient was deemed safe to proceed with today's procedure with IV conscious sedation as ASA class II designation. Safety time-out was performed to confirm patient ID, procedure to be performed and site of procedure. IV sedation was accomplished with a combination of 2mg of Versed and 50mcg of Fentanyl was administered by the RN after DO order, titrated to patient comfort during the course of the procedure while the patient remained responsive to all verbal commands. In the prone position, following sterile prep and drape of the lumbar region, the posterior aspect of the L3/4, L4/5 facet joints were identified fluoroscopically. The skin was anesthetized via a 25-gauge 1.5-inch needle with 1% lidocaine solution into the corresponding facet joints. At this point, a 22- gauge 3.5-inch spinal needle was atraumatically introduced and advanced under fluoroscopic guidance into the corresponding facet joints. Following negative aspiration, injections of approximately 0.2cc of Isovue 200 confirmed interart icular placement without vascular uptake. The identical procedure was then performed at the L3/4, L4/5 facet joints on the left. Radiological data, including multiple fluoroscopic views of the lumbosacral spine, reveal a spinal needle at the L3/4, L4/5 facet joints bilaterally. Subsequent views show flow of contrast material both superiorly and inferiorly within the joint space without vascular or intrathecal uptake. At this point, a total of 0.5cc including a mixture of 0.25cc Marcaine and 0.25cc betamethasone was injected without complication into each of the corresponding facet joints. The patient tolerated the procedure well without signs or symptoms of complications prior to transfer to the recovery area continued monitoring without incident. The patient was then transferred to the recovery area where they were observed for an appropriate period of time after the injection. The patient reported a VAS score of 7 prior to the procedure and a post-procedure VAS of 0. POST OP INSTRUCTIONS The patient was provided a Pain Log to continue to record their response to the target-specific procedure prior to follow-up visit with their referring p hysician. Additionally, specific post-injection care instructions and a contact number to our office were provided if concerns arise regarding possible complications associated with the procedure are suspected.
== END 2020-06-19 10:40 | disposition home or self-care (01) ==
PROVIDERS: PCP Internal Medicine; Referring Provider Physical Medicine & Rehabilitation; Visit Provider Physical Medicine & Rehabilitation
DX: M47.816 Spondylosis without myelopathy or radiculopathy, lumbar region (principal); M54.5 Low back pain; M51.36 Other intervertebral disc degeneration, lumbar region
CPT/HCPCS: 64493; 64494; 99152; J0702; J2250; J3010

== ENCOUNTER → 2020-07-30 13:25 | Outpatient (CLI) | payer MEDICARE, OTHER, SELFPAY ==
[2020-07-30 14:12] LABS: COVID19 -Nasal RAPID Negative (Negative)
== END ==
PROVIDERS: PCP Internal Medicine; Visit Provider Physical Medicine & Rehabilitation
DX: Z01.812 Encounter for preprocedural laboratory examination (principal); Z20.828 Contact with and (suspected) exposure to other viral communicable diseases
CPT/HCPCS: 87635; C9803

== ENCOUNTER 2020-07-31 09:52 | Outpatient (CLI) | payer MEDICARE, OTHER, SELFPAY ==
[2020-07-31] VITALS (10 sets, daily range): BP systolic 111–135; BP diastolic 67–84; PULSE 64–78; RESP 14–21; TEMP 36.4; O2SAT 96–100
--- NOTE | 2020-07-31 09:56 | DI.RAD.S_ITS ---
PROCEDURE: PAIN L/S FACET INJ/BLK 1ST ZABRINA COMPARISON: [facility], XA, PAIN L/S FACET INJ/BLK 1ST ZABRINA, 06/19/2020, 10:01. INDICATIONS: SPONDYLOSIS FINDINGS: Right-sided and then left-sided needle tip localizations were performed at the L3, L4, and L5 nerve root levels for medial branch block procedures, bilaterally, 6 total. IMPRESSION: Expected anatomic positioning for bilateral L3 through L5 medial branch block procedures. Dictated by: Aly Kim M.D. on 07/31/2020 at 11:08 Approved by: Aly Kim M.D. on 07/31/2020 at 11:09
[2020-07-31] MEDS: fentaNYL 100 MCG/2 ML INJ 50 MCG IV (10:27)
[2020-07-31] MEDS: MIDAZOLAM 5 MG/5 ML VIAL IV (10:32)
[2020-07-31] MEDS: IOPAMIDOL 15 ML VIAL 3 ML INJ (10:33)
[2020-07-31] MEDS: BUPIVACAINE 0.5% (PF) VIAL 5 ML INJ (10:33)
[2020-07-31] MEDS: LIDOCAINE 1% 20 ML 10 ML INJ (10:33)
--- NOTE | 2020-07-31 10:45 | PM.PROC.IR.1 ---
Date/Time/Diagnoses Date of procedure: 07/31/20 Time of procedure: 10:45 Pre-procedure diagnosis: 1. FACET ARTHROPATHY Post-procedure diagnosis: same Procedure Notes Procedure: 1. BILATERAL L3, L4 AND L5 DIAGNOSTIC MB BLOCKS Indications: Konrad is referred by Dr. Alejandro for treatment of Bilateral Axial LBP. Physician: Timo Gilbert Total Fluoroscopy time (seconds): 10 Total sedation minutes: 15 Complications: none Procedure in detail & Post-procedure care: DESCRIPTION OF PROCEDURE Fluoroscopically guided, contrast-controlled bilateral L3, L4 AND L5 medial branch blocks with 0.5cc of 0.5% Marcaine. Following review of allergy and review of potential side effects and complications, including, but not necessarily limited to, infection, allergic reaction, local tissue breakdown, nerve injury, paralysis, stroke and possible , the patient indicated that the patient understood and agreed to proceed. An informed consent document was signed by the patient, witnessed by a nurse, and placed in the patient's chart. After review of previous anaesthesic history and IV conscious sedation the patient was deemed safe to proceed with today's procedure with IV conscious sedation as ASA class II designation. Safety time-out was performed to confirm patient ID, procedure to be performed and site of procedure. IV sedation was accomplished with a combination of 4mg of Versed and 50mcg of Fentantyl was administered by the RN after DO order, titrated to patient comfort during the course of the procedure while the patient remained responsive to all verbal commands In the prone position, following sterile prep and drape of the lumbar region, the right L3, L4 AND L5 anatomical location of the medial branch of the dorsal ramus was identified fluoroscopically. Subsequently an anesthetic skin wheal using 1% lidocaine solution was initiated at each of the anatomical spots. Subsequently then a 22-gauge 3.5-inch spinal needle was atraumatically introduced and advanced under fluoroscopic guidance at each of the corresponding sites at the right L3, L4 and L5 MB. After negative aspiration, 0.2cc of Isovue 200 was injected, confirming placement without vascular or intrathecal uptake. Subsequently then 0.5cc of 0.5% Marcaine solution was injected at each of the corresponding sites at the right L3, L4 and L5 medial branch locations. The identical procedure was replicated on the left. The patient tolerated the procedure well without signs or symptoms of complications. The patient tolerated the procedure well without signs or symptoms of complications prior to transfer to the recovery area continued monitoring without incident. Post-procedure, the patient was monitored initiating provocative activities to measure the amount of relief from block of the facetogenic pain. The patient reported a VAS of 7 prior to the procedure and a post-procedure VAS of 1. It has been a pleasure to assist in the diagnostic and therapeutic care of your patient. POST OP INSTRUCTIONS The patient was provided with a Pain Log to complete over the next several hours and subsequent days prior to the patient's follow up with the ordering physician. If the patient has cashier courtesy booth relief to the solution applied, then they may be a candidate for medial branch rhizotomy. The patient is aware, was provided, once again, with a Pain Log and will follow up with the referring physician for review and clinical correlation
== END 2020-07-31 11:30 | disposition home or self-care (01) ==
PROVIDERS: PCP Internal Medicine; Referring Provider Physical Medicine & Rehabilitation; Visit Provider Physical Medicine & Rehabilitation
DX: M47.816 Spondylosis without myelopathy or radiculopathy, lumbar region (principal)
CPT/HCPCS: 64493; 64494; 99152; J2250; J3010

== ENCOUNTER → 2021-02-11 10:23 | Outpatient (CLI) | payer MEDICARE, OTHER, SELFPAY ==
[2021-02-11 11:45] LABS: COVID19 -Nasal RAPID Negative (Negative)
== END ==
PROVIDERS: PCP Internal Medicine; Visit Provider Physician Assistant
DX: Z01.812 Encounter for preprocedural laboratory examination (principal); Z20.822 Contact with and (suspected) exposure to COVID-19
CPT/HCPCS: 87635; C9803

== ENCOUNTER 2021-02-12 08:45 | Day surgery (SDC) | payer MEDICARE, OTHER, SELFPAY ==
[2021-02-12] MEDS: PROPARACAINE 0.5% OPHTH SOL 2 DROPS EYE-OP (09:43)
[2021-02-12] MEDS: CATARACT EYE COMPOUND (10 DROPS/SYRINGE) 3 DROPS EYE-OP (09:49)
[2021-02-12 09:50] VITALS: BMI 25.7
[2021-02-12 10:01] VITALS: BP 122/78; PULSE 68; RESP 12; TEMP 36.4; O2SAT 97; BMI 25.7
--- NOTE | 2021-02-12 10:38 | P.OP_ITS ---
Operative Date/Time/Diagnoses Pre-op diagnosis: Nuclear cataract right eye Procedure & Clinicians Procedure: Cataract Surgery Same procedure as scheduled: Yes Surgeon: Carlos Bragg Anesthesia Type: MAC +/- and Sedation Operative Notes Procedure in detail: Patient brought to the operating suite. Tetracaine drops placed in the right eye. Marking instrument was used to irma the vertical and horizontal meridians. Patient was prepped and draped in sterile manner. Wire lid speculum was placed in the eye. Marking instrument was used to irma 15 degree meridian. Betadine drops were placed on the eye. This was irrigated. Lidocaine jelly was placed on the eye. A paracentesis port was created with a side-port blade. 0.1 mL 1% preservative free lidocaine was injected into the anterior chamber. The anterior chamber was deepened with viscoelastic. 2.6 mm keratome was used to create a temporal clear corneal incision. Cystotome and Utrata forceps were used to create continuous tear capsulorrhexis. Balanced salt solution was used to hydro dissect the nucleus. The phacoemulsification handpiece was inserted and the nucleus was removed using the stop and chop technique. The irrigation aspiration handpiece was inserted and the remaining cortex was removed. Anterior chamber was deepened with viscoelastic. An Doss [id number] intraocular lens with a power of 21.0 was injected into the capsular bag. Irrigation aspiration handpiece was inserted and the remaining viscoelastic was removed. The lens was rotated to the 15 degree meridian. Incision was hydrated with balanced salt solution and found to be leak free with pressure with Weck- Yu sponges. 0.1 mL Vigamox injected anterior chamber. 0.3 mL Kenalog 10 mg was injected subconjunctivally. Lid speculum was removed. The patient left the operating room in excellent condition. Complications: none Post-operative Condition: stable Disposition: same day surgery
--- NOTE | 2021-02-12 10:38 | PM.PREOP ---
Pre-operative Note Interval Note History & Physical reviewed/Exam performed by Physician: Yes Changes to H&P: No
[2021-02-12] MEDS: PHENYLEPHRINE/LIDOCAINE VIAL (OR) 0.2 ML EYE-OP (10:52)
[2021-02-12] MEDS: LIDOCAINE 2% (GLYDO) 6 ML GEL TOP (10:53)
[2021-02-12] MEDS: CHONDROIDTIN/SOD HYALURONATE 1.05 ML SYRINGE INTRAOCULA (10:53)
[2021-02-12] MEDS: TRIAMCINOLONE 50 MG/5 ML VIAL INJ (10:53)
[2021-02-12] MEDS: TETRACAINE 0.5% OPHTH DROPS 4 ML 2 DROPS EYE-OP (10:53)
[2021-02-12] MEDS: MOXIFLOXACIN INJ 4 MG/0.8 ML VIAL 0.5 MG EYE-OP (10:54)
[2021-02-12] MEDS: BALANCED SALT IRRIG SOLN NO.2 500 ML, EPINEPHrine 1 MG IRR (10:54)
[2021-02-12 11:10] VITALS: BP 128/82; PULSE 68; TEMP 36.2; O2SAT 97
== END 2021-02-12 11:19 | disposition home or self-care (01) ==
PROVIDERS: PCP Internal Medicine; Referring Provider Ophthalmology; Visit Provider Ophthalmology
PROC: (CPT 66984; principal; 2021-02-12 10:45)
DX: H25.11 Age-related nuclear cataract, right eye (principal); E78.5 Hyperlipidemia, unspecified
CPT/HCPCS: 66984; J0171; J2250; J2704; J3301; V2787

== ENCOUNTER → 2021-02-25 07:02 | Outpatient (CLI) | payer MEDICARE, OTHER, SELFPAY ==
[2021-02-25 08:13] LABS: Alanine Aminotransferase 24 IU/L (<50); Albumin 4.3 g/dL (3.5-5.0); Albumin Globulin Ratio 1.3 (1.0-2.8); Alkaline Phosphatase 70 U/L (38-126); Aspartate Aminotransferase 29 IU/L (17-59); BUN Creatinine Ratio 16.8 (6-22); Bilirubin Total 0.9 mg/dL (0.2-1.3); Blood Urea Nitrogen 20 mg/dL (9-20); Calcium 9.6 mg/dL (8.4-10.2); Carbon Dioxide 28 mmol/L (22-32); Chloride 105 mmol/L (98-107); Cholesterol 200 mg/dL (140-199); Estimated Glomerular Filt Rate > 60.0 mL/min (>60); Globulin 3.2 g/dL (1.7-4.1); Glucose 109 mg/dL (80-110); HDL Cholesterol 51 mg/dL (40-60); HEMOLYSIS < 15 (0-50); LDL Cholesterol Calculated 132 mg/dL (<100); Potassium 4.1 mmol/L (3.4-5.1); Sodium 140 mmol/L (137-145); Total Protein 7.5 g/dL (6.3-8.2); Triglycerides 87 mg/dL (35-150)
[2021-02-25 08:43] LABS: Prostate Specific Antigen Scrn 0.898 ng/mL (0.1-4.0)
[2021-02-25 09:54] LABS: COVID19 -Nasal RAPID Negative (Negative)
== END ==
PROVIDERS: Physician Assistant; PCP Internal Medicine; Referring Provider Internal Medicine; Visit Provider Internal Medicine
DX: Z01.812 Encounter for preprocedural laboratory examination (principal); E78.2 Mixed hyperlipidemia; Z12.5 Encounter for screening for malignant neoplasm of prostate; Z20.822 Contact with and (suspected) exposure to COVID-19
CPT/HCPCS: 36415; 80053; 80061; 87635; C9803; G0103

== ENCOUNTER 2021-02-26 07:56 | Day surgery (SDC) | payer MEDICARE, OTHER, SELFPAY ==
[2021-02-26] MEDS: PROPARACAINE 0.5% OPHTH SOL 2 DROPS EYE-OP (09:17)
[2021-02-26] MEDS: CATARACT EYE COMPOUND (10 DROPS/SYRINGE) 3 DROPS EYE-OP (09:17)
[2021-02-26 09:24] VITALS: BP 124/79; PULSE 66; RESP 14; TEMP 36.8; O2SAT 99; BMI 27.4
--- NOTE | 2021-02-26 09:53 | PM.PREOP ---
Pre-operative Note Interval Note History & Physical reviewed/Exam performed by Physician: Yes Changes to H&P: No
--- NOTE | 2021-02-26 09:54 | PM.OP.1 ---
Operative Date/Time/Diagnoses Pre-op diagnosis: Nuclear Cataract Left eye Post-op diagnosis: same Procedure & Clinicians Same procedure as scheduled: Yes Surgeon: Carlos Bragg Anesthesia Type: MAC +/- and Sedation Operative Notes Procedure in detail: Patient brought to the operating suite. Tetracaine drops placed in the left eye. Marking instrument was used to irma the veritcal and horizontal meridians. Patient was prepped and draped in sterile manner. Wire lid speculum was placed in the eye. Betadine drops were placed on the eye. This was irrigated. Lidocaine jelly was placed on the eye. A paracentesis port was created with a side-port blade. 0.1 mL 1% preservative free lidocaine was injected into the anterior chamber. The anterior chamber was deepened with viscoelastic. 2.6 mm keratome was used to create a temporal clear corneal incision. Cystotome and Utrata forceps were used to create continuous tear capsulorrhexis. Balanced salt solution was used to hydro dissect the nucleus. The phacoemulsification handpiece was inserted and the nucleus was removed using the stop and chop technique. The irrigation aspiration handpiece was inserted and the remaining cortex was removed. Anterior chamber was deepened with viscoelastic. An Doss [id number] intraocular lens with a power of 21.0 was injected into the capsular bag. Irrigation aspiration handpiece was inserted and the remaining viscoelastic was removed. The lens was rotated to the 180 degree meridian. Incision was hydrated with balanced salt solution and found to be leak free with pressure with Weck-Yu sponges. 0.1 mL Vigamox injected anterior chamber. 0.3 mL Kenalog 10 mg was injected subconjunctivally. Lid speculum was removed. The patient left the operating room in excellent condition. Complications: none Post-operative Condition: stable Disposition: same day surgery
[2021-02-26] MEDS: PHENYLEPHRINE/LIDOCAINE VIAL (OR) 0.2 ML EYE-OP (10:12)
[2021-02-26] MEDS: MOXIFLOXACIN INJ 4 MG/0.8 ML VIAL 0.5 MG EYE-OP (10:12)
[2021-02-26] MEDS: TRIAMCINOLONE 50 MG/5 ML VIAL INJ (10:12)
[2021-02-26] MEDS: BALANCED SALT IRRIG SOLN NO.2 500 ML, EPINEPHrine 1 MG IRR (10:13)
[2021-02-26] MEDS: TETRACAINE 0.5% OPHTH DROPS 4 ML 2 DROPS EYE-OP (10:13)
[2021-02-26] MEDS: LIDOCAINE 2% (GLYDO) 6 ML GEL TOP (10:13)
[2021-02-26] MEDS: CHONDROIDTIN/SOD HYALURONATE 1.05 ML SYRINGE INTRAOCULA (10:13)
[2021-02-26 10:28] VITALS: BP 132/87; PULSE 81; RESP 18; TEMP 36.6; O2SAT 98
--- NOTE | 2021-02-26 10:42 | SUR.PHASEII ---
Pt left when ready and left in stable condition.
== END 2021-02-26 10:40 | disposition home or self-care (01) ==
PROVIDERS: PCP Internal Medicine; Referring Provider Ophthalmology; Visit Provider Ophthalmology
PROC: (CPT 66984; principal; 2021-02-26 10:15)
DX: H25.12 Age-related nuclear cataract, left eye (principal); E78.5 Hyperlipidemia, unspecified
CPT/HCPCS: 66984; J0171; J2250; J3301; V2787

== ENCOUNTER → 2021-04-09 09:09 | Outpatient (CLI) | payer MEDICARE, OTHER, SELFPAY ==
[2021-04-09 09:49] LABS: COVID19 -Nasal RAPID Negative (Negative)
== END ==
PROVIDERS: PCP Internal Medicine; Visit Provider Nurse Practitioner
DX: Z20.822 Contact with and (suspected) exposure to COVID-19 (principal)
CPT/HCPCS: 87635

== ENCOUNTER 2021-04-10 07:05 | Day surgery (SDC) | payer MEDICARE, OTHER, SELFPAY ==
--- NOTE | 2021-04-10 | PATH_ITS ---
[facility] Accession Number: [id number] . 01 Material submitted: . PART A: esophagus, E-G Junction - GE JUNCTION PART B: colon - TRANSVERSE COLON POLYP . 02 Diagnosis: A. Gastroesophageal Junction, Biopsy: Oxyntic mucosa with mild chronic inflammation. Negative for intestinal metaplasia. Negative for dysplasia and malignancy. . B. Transverse Colon, Polyp, Biopsy: Sessile serrated adenoma. I 04/12/2021 1112 Local . 02 Electronically signed: . Ene Cavanaugh MD, Pathologist NPI- [id number] . 01 Gross description: . Part A: GE JUNCTION: Received in formalin are 3 fragment(s) of chaudhary, soft tissue measuring 0.4 x 0.3 x 0.1 cm to 0.3 x 0.1 x 0.1 cm submitted entirely in 1 cassette(s) Part B: TRANSVERSE COLON POLYP: Received in formalin are 2 fragment(s) of chaudhary, soft tissue measuring 0.8 x 0.3 x 0.1 cm to 0.3 x 0.3 x 0.2 cm submitted entirely in 1 cassette(s) /KEERTHI 04/11/2021 0429 Local . 02 Pathologist provided ICD-10: D12.3 . 02 CPT . 965053, [id number] Performed at: 01 [facility] [address], [place], [place] [id number] MD Donte Bailey MD Phone: [phone] Performed at: 02 [facility] [address] [place], [place] [id number] MD Ene Cavanaugh MD Phone: [phone]
[2021-04-10 07:29] VITALS: BP 150/94; PULSE 106; RESP 16; TEMP 36.5; O2SAT 97; BMI 26.4
[2021-04-10] MEDS: SODIUM CHLORIDE 0.9% 1,000 ML 84 ML IV (07:38)
--- NOTE | 2021-04-10 08:25 | P.HP_ITS ---
History of Present Illness History of Present Illness Date Patient Seen: 04/10/21 Chief complaint: SDC Narrative: GE reflux and history of colon polyps Patient History Medical History (Updated 04/10/21 @ 07:26 by Gumaro Kilgore RN) Facet arthropathy, lumbar Gastroesophageal reflux disease without esophagitis (03/08/12) History of adenomatous polyp of colon (03/08/12) Larynx polyp Lumbosacral spondylosis Mixed hyperlipidemia Surgical History (Updated 02/18/21 @ 11:35 by Miles Alejandro MD) H/O toe surgery S/P cataract extraction (~01/2021) Family & Social History Family History Father Diabetes mellitus Social History: household members spouse Tobacco & Substance use: Smoking Status Never smoker alcohol intake current alcohol intake frequency a few times a week Substance Use Type does not use Meds Home Medications and Allergies Home Medications Medication Instructions Recorded Confirmed Type famotidine 20 mg PO DAILY PRN 02/20/20 04/10/21 History omeprazole magnesium 20 mg 20 mg PO DAILY #90 cap 08/30/20 04/10/21 Rx capsule,delayed release (Acid Clinical Education Specialist (omeprazole)) atorvastatin 40 mg tablet See Rx Instructions .ROUTE 01/17/21 04/10/21 Rx .COMPLEX #90 tablet celecoxib 200 mg capsule (Celebrex) 200 mg PO PRN PRN 02/26/21 04/10/21 History Allergies Allergy/AdvReac Type Severity Reaction Status Date / Time midazolam [From Versed] AdvReac Intermediate Nausea Verified 02/26/21 09:16 Exam Vital Signs (past 8 hours): - 04/10/21 07:29 Temperature 97.7 F Pulse Rate 106 H Respiratory Rate 16 Blood Pressure 150/94 H Pulse Oximetry 97 Oxygen Delivery Method Room Air Oxygen Flow Rate 0 Narrative Exam Narrative: Oropharynx free of lesions Chest clear to auscultation percussion Cardiac exam reveals no S3 or murmur Assessment & Plan Assessment & Plan narrative: GE reflux and history of colon polyps need for follow-up EGD and colonoscopy. Risks, benefits, alternatives have been explained.
--- NOTE | 2021-04-10 08:26 | PM.OP.ENDO ---
Operative Date/Time/Diagnoses Date of procedure: 04/10/21 Pre-op diagnosis: See indication and findings Procedure & Clinicians Study performed: EGD and colonoscopy Indications: GE reflux and history of colon polyps Surgeon: Aryan Mccarthy Procedure Notes Procedure in detail: After informed consent was obtained the patient was placed in left lateral decubitus position. Video upper scope was placed into the oropharynx and with the patient's help swallowed into the esophagus. The esophagus stomach and duodenum were carefully examined. On withdrawal retroflexed view of the GE junction was performed. The scope was removed. The patient tolerated procedure well. The patient was then turned to the colonoscope substituted. This was placed in the rectum and slowly advanced to the cecum. Preparation was good. On slow withdrawal mucosa was carefully examined. The scope was removed. The patient tolerated procedure well. Blood loss none Complications none Sedation Total sedation time Findings EGD 1. Circumferential 1 cm distance between top of the GB folds and the squamocolumnar junction. Four-quadrant biopsies were taken to rule out Guzman's esophagus 2. Reasonably wide open lower esophageal sphincter 3. Normal stomach 4. Normal duodenal bulb and sweep Colonoscopy 1. Two 3-4 mm sessile polyps in the transverse colon each Jumbo biopsy removed completely 2. Extensive sigmoid and left-sided diverticulosis 3. Internal hemorrhoids mild 4. Otherwise negative colonoscopy to cecum Will await biopsies on the polyps but patient will need follow-up colonoscopy in 5 years. If EGD biopsies are positive he will need follow-up EGD in 3 years.
[2021-04-10] MEDS: fentaNYL 250 MCG/5 ML INJ IV (08:27)
[2021-04-10] MEDS: MIDAZOLAM 5 MG/5 ML VIAL IV (08:28)
[2021-04-10] MEDS: ONDANSETRON 4 MG/2 ML INJ IV (08:29)
[2021-04-10 09:01] VITALS: BP 113/78; PULSE 70; RESP 20; TEMP 36.7; O2SAT 94
[2021-04-10 09:06] VITALS: BP 108/70; PULSE 68; RESP 16; O2SAT 93
--- NOTE | 2021-04-10 09:09 | SUR.PHASEI ---
Received to PACU after EGD and colonoscopy with sedation. Report received from LEXY Garcia.
[2021-04-10 09:16] VITALS: BP 123/88; PULSE 82; RESP 12; O2SAT 94
[2021-04-10 09:23] VITALS: BP 119/81; PULSE 77; RESP 12; TEMP 36.7; O2SAT 94
[2021-04-10 09:35] VITALS: BP 120/77; PULSE 73; RESP 18; TEMP 37; O2SAT 94
--- NOTE | 2021-04-10 09:51 | SUR.PHASEII ---
Pt dcd with all belongings in stable condition via wc
== END 2021-04-10 09:43 | disposition home or self-care (01) ==
PROVIDERS: PCP Internal Medicine; Referring Provider Internal Medicine Gastroenterology; Visit Provider Internal Medicine Gastroenterology
PROC: 0DJ08ZZ Inspection of Upper Intestinal Tract, Via Natural or Artificial Opening Endoscopic (ICD-10-PCS; CPT 43235; principal; 2021-04-10 08:30)
PROC: 0DJD8ZZ Inspection of Lower Intestinal Tract, Via Natural or Artificial Opening Endoscopic (ICD-10-PCS; CPT 45378; 2021-04-10 08:30)
DX: Z12.11 Encounter for screening for malignant neoplasm of colon (principal); K21.9 Gastro-esophageal reflux disease without esophagitis; Z86.010 Personal history of colon polyps; E78.5 Hyperlipidemia, unspecified; K57.30 Diverticulosis of large intestine without perforation or abscess without bleeding; K64.8 Other hemorrhoids; D12.3 Benign neoplasm of transverse colon; K29.50 Unspecified chronic gastritis without bleeding
CPT/HCPCS: 45380; 43239; J2250; J2405; J3010

== ENCOUNTER → 2023-01-02 07:00 | Outpatient (CLI) | payer MEDICARE, OTHER, SELFPAY ==
[2023-01-02 08:46] LABS: Alanine Aminotransferase 27 IU/L (<50); Albumin 4.1 g/dL (3.5-5.0); Albumin Globulin Ratio 1.4 (1.0-2.8); Alkaline Phosphatase 79 U/L (38-126); Aspartate Aminotransferase 28 IU/L (17-59); BUN Creatinine Ratio 17.4 (6-22); Bilirubin Total 0.6 mg/dL (0.2-1.3); Blood Urea Nitrogen 19 mg/dL (9-20); Calcium 9.4 mg/dL (8.4-10.2); Carbon Dioxide 28 mmol/L (22-32); Chloride 103 mmol/L (98-107); Cholesterol 178 mg/dL (140-199); Estimated Glomerular Filt Rate > 60 mL/min (>60); Globulin 2.9 g/dL (1.7-4.1); Glucose 101 mg/dL (80-110); HDL Cholesterol 56 mg/dL (40-60); HEMOLYSIS < 15 (0-50); LDL Cholesterol Calculated 109 mg/dL (<100); Potassium 4.5 mmol/L (3.4-5.1); Sodium 139 mmol/L (137-145); Triglycerides 64 mg/dL (35-150)
== END ==
PROVIDERS: PCP Internal Medicine; Referring Provider Internal Medicine; Visit Provider Internal Medicine
DX: E78.2 Mixed hyperlipidemia (principal)
CPT/HCPCS: 36415; 80053; 80061

== ENCOUNTER → 2024-01-08 07:29 | Outpatient (CLI) | payer MEDICARE, OTHER, SELFPAY ==
[2024-01-08 08:11] LABS: Add Manual Diff / Slide Review NO; Basophils Absolute Auto 100 /uL (0-100); Basophils Percent Auto 1.2 % (0-2); Eosinophils Absolute Auto 300 /uL (0-450); Eosinophils Percent Auto 3.9 % (2-4); Hematocrit 46.2 % (41-53); Hemoglobin 15.8 g/dL (13.5-17.5); Lymphocytes Absolute Auto 1900 /uL (1100-4500); Lymphocytes Percent Auto 27.3 % (25-40); Mean Corpuscular HGB Conc 34.2 % (30-36); Mean Corpuscular Hemoglobin 31.5 PG (26-34); Monocytes Absolute Auto 500 /uL (0-900); Monocytes Percent Auto 7.4 % (3-14); Neutrophils Absolute Auto 4100 /uL (1500-7000); Neutrophils Percent Auto 60.2 % (50-75); Platelet Count 205 X10^3/uL (150-400); Red Blood Cell Count 5.01 X10^6/uL (4.5-5.9); Red Cell Distribution Width 13.2 % (11.6-14.8); White Blood Cell Count 6.8 X10^3/uL (4.5-11.0)
[2024-01-08 08:41] LABS: Alanine Aminotransferase 27 IU/L (<50); Albumin 4.4 g/dL (3.5-5.0); Albumin Globulin Ratio 1.7 (1.0-2.8); Alkaline Phosphatase 69 U/L (38-126); Aspartate Aminotransferase 27 IU/L (17-59); BUN Creatinine Ratio 17.5 (6-22); Blood Urea Nitrogen 20 mg/dL (9-20); Calcium 9.6 mg/dL (8.4-10.2); Carbon Dioxide 29 mmol/L (22-32); Chloride 106 mmol/L (98-107); Cholesterol 195 mg/dL (140-199); Estimated Glomerular Filt Rate > 60 mL/min (>60); Globulin 2.6 g/dL (1.7-4.1); Glucose 106 mg/dL (80-110); HDL Cholesterol 65 mg/dL (40-60); HEMOLYSIS < 15 (0-50); LDL Cholesterol Calculated 112 mg/dL (<100); Potassium 4.3 mmol/L (3.4-5.1); Sodium 139 mmol/L (137-145); Triglycerides 92 mg/dL (35-150)
== END ==
PROVIDERS: PCP Internal Medicine; Referring Provider Internal Medicine; Visit Provider Internal Medicine
DX: E78.2 Mixed hyperlipidemia (principal); D64.9 Anemia, unspecified; Z79.899 Other long term (current) drug therapy
CPT/HCPCS: 36415; 80053; 80061; 85025

== ENCOUNTER → 2025-02-28 10:06 | Outpatient (CLI) | payer MEDICARE, OTHER, SELFPAY ==
--- NOTE | 2025-02-28 10:09 | DI.RAD.S_ITS ---
PROCEDURE: XR SHOULDER LT MIN 2V INDICATIONS: shoulder pain TECHNIQUE: 3 views of the shoulder were acquired. COMPARISON: None. FINDINGS: Bones: No fractures or dislocations. No suspicious bony lesions. Visualized ribs appear intact. Moderate acromioclavicular and glenohumeral degenerative narrowing. Rounded ossification overlies the acromioclavicular joint space appearing chronic. No erosions. Soft tissues: No suspicious soft tissue calcifications. IMPRESSION: Acromioclavicular and glenohumeral arthritic change. Dictated by: Sherrie Mason M.D. on 02/28/2025 at 14:20 Approved by: Sherrie Mason M.D. on 02/28/2025 at 14:20
== END ==
PROVIDERS: PCP Internal Medicine; Referring Provider Internal Medicine; Visit Provider Internal Medicine
DX: M25.512 Pain in left shoulder (principal)
CPT/HCPCS: 73030

== ENCOUNTER → 2025-03-08 12:29 | Outpatient (CLI) | payer MEDICARE, OTHER, SELFPAY ==
--- NOTE | 2025-03-08 12:30 | DI.MRI.S_ITS ---
PROCEDURE: MR SHOULDER LT WO CON INDICATIONS: Pain TECHNIQUE: Noncontrast oblique coronal T2 fast spin echo with fat saturation, oblique sagittal T1 spin echo and T2 fast spin echo with fat saturation, axial T1 spin echo and T2 fast spin echo with fat saturation through the shoulder. COMPARISON: [facility], CR, XR SHOULDER LT 2+ VIEWS, 02/28/2025, 10:08. FINDINGS: Image quality: Excellent. Rotator cuff: There is low grade, articular sided and interstitial tear at the critical zone of the junction of the supraspinatus and infraspinatus (08:11). Mild tendinosis supraspinatus and infraspinatus. The teres minor is unremarkable. The subscapularis is unremarkable. No muscle edema or fatty atrophy. Bones and bursae: Moderate degenerative changes of the acromioclavicular joint. Type 1 acromion. No os acromiale. Trace subacromial/subdeltoid bursitis. Moderate subchondral cystic changes and marrow edema at the lesser and greater tuberosity, reactive. No acute fracture. Moderate sized full-thickness chondral loss in the superomedial humeral head (08:10). Capsule and soft tissues: Superior labral tear, extending anteriorly to the anterior superior labrum. Posterior labral tear as well. No paralabral cyst. Mild tenosynovitis of the extra-articular biceps tendon with low-grade interstitial tear, partially visualized. Mild tendinosis of the intra-articular biceps tendon. Small glenohumeral effusion. No intra-articular body. Mild muscle edema of the lateral deltoid, raising concern for mild muscle strain. IMPRESSION: 1. Moderate degenerative changes of the acromioclavicular joint. 2. Mild chondrosis of glenohumeral joint. 3. Low-grade tear at the junction supraspinatus infraspinatus. 4. Labral tear. 5. Mild tenosynovitis with low-grade tear interstitial tear of the extra- articular biceps tendon. 6. Mild muscle strain of the lateral deltoid. Dictated by: Farideh Raphael M.D. on 03/08/2025 at 14:49 Approved by: Farideh Raphael M.D. on 03/08/2025 at 14:59
== END ==
LOC: MRI 12:30
PROVIDERS: PCP Internal Medicine; Referring Provider Orthopaedic Surgery; Visit Provider Orthopaedic Surgery
DX: M75.42 Impingement syndrome of left shoulder (principal); M94.212 Chondromalacia, left shoulder; S43.432A Superior glenoid labrum lesion of left shoulder, initial encounter; M75.112 Incomplete rotator cuff tear or rupture of left shoulder, not specified as traumatic; M65.812 Other synovitis and tenosynovitis, left shoulder; S46.812A Strain of other muscles, fascia and tendons at shoulder and upper arm level, left arm, initial encounter
CPT/HCPCS: 73221